=== PATIENT | male | born 1970 | race Caucasian/White ===

== ENCOUNTER → 2016-04-17 08:13 | Day surgery (SDC) | payer BC ==
[~2016-04-17 08:13] MED LIST: Buffered Lidocaine 1% SYR 3ML* 3 ML/SYR SYRINGE INTRADERM ONE; Buffered Lidocaine 1% SYR 3ML* 3 ML/SYR SYRINGE ONE; Bupivacaine 0.25% EPI 200,000* 30 ML SDV ONE; Dexamethasone IV* 4 MG/ML 1 ML (4 MG) ONE; HYDROmorphone INJ* 1 MG/ML CARPUJECT SYRINGE IV PRN; Ketorolac INJ* 30 MG/ML 1 ML VIAL ONE; Lidocaine 2% PF * 5 ML VIAL ONE; Midazolam* 1 MG/ML 2 ML VIAL (2 MG) ONE; Ondansetron INJ* 2 MG/ML VIAL ONE; Propofol* 10 MG/ML 20 ML BTL IV PUSH ONE; ceFAZolin 2 GM PREMIX (*) 2 GM/50 ML BAG IVPB ONE; fentaNYL* 50 MCG/ML 2 ML VIAL (100 MCG VIAL) ONE; methylPREDNISolone ACETATE 80* 80 MG/ML 1 ML VIAL ONE
[2016-04-17 13:25] VITALS: BP 138/79
--- NOTE | 2016-04-21 18:01 | OP ---
CC: PCP OPERATIVE REPORT: DATE OF OPERATION: 04/17/16 DATE OF : 72 SURGEON: Jenifer Betancourt MD [employer]: GARO Howard A PA was needed for the entirety of the case to help with positioning, retraction, and was utilized throughout all portions of the case. ANESTHESIOLOGIST: Dr. Murrieta. ANESTHESIA: General. PRE-OP DIAGNOSES: Right knee medial meniscus tear, lateral meniscus tear, and mild osteoarthritis. POST-OP DIAGNOSES: Right knee medial meniscus tear, lateral meniscus tear, and mild osteoarthritis. OPERATIVE PROCEDURE: Right knee arthroscopy with chondroplasty of the medial femoral condyle, parti al lateral meniscectomy of the lateral root, partial medial meniscectomy, and lysis of adhesions. INDICATIONS: Luis Manuel Lacy is a 45-year-old male who has had progressive knee pain. He underwent arthroscopy with medial meniscus, partial meniscectomy, and chondroplasty. He was doing okay, but i n the last few months, he noticed an increase in pain. He states that he did not fully follow my di rections after his first surgery and was doing too much. He has also gained at least 30 to 50 pound s since his initial surgery. He reports catching, but no specific locking. Risks and benefits of s urgical versus nonoperative treatment were discussed at length and he elected to proceed with chris suazo. DESCRIPTION OF PROCEDURE: The patient was greeted in the preoperative area by the attending surgeon . Correct extremity was marked and consent was confirmed. The patient was brought to the operating suite, where he was placed in the supine position on the operating table. He then underwent genera l anesthesia with LMA intubation, after which a lateral post was placed. A unsterile tourniquet was placed high in the proximal thigh. After a miniature surgical pause, he was injected with 0.25% Ma rcaine with epi. The right leg was then prepped and draped in the usual sterile fashion beginning w ith chlorhexidine, soap, and alcohol and a final prep with ChloraPrep. After appropriate surgical pause indicating side, site, procedure, administration of antibiotics; th e lateral portal was made sharply with 11 blade and a scope was introduced into the joint. There wa s abundant scar anteriorly that limited mobility of the scope. This was medially based as well as a nteriorly and laterally based. This obscured the view, therefore an anteromedial portal was then ma de. The electrocautery device as well as the shaver was used to debride the abundant scar. The knee was then placed in extension, so that the patellofemoral joint could be visualized and the scar was pinching in between the femoral joint. All of this was carefully removed including base of an ante rior synovectomy had been done to allow for visualization. After this was complete, the medial and lateral gutters were identified and found to be without loose debris. The patellofemoral joint had grade 0 to 1 changes. The ACL was intact, but bruised. The lateral compartment was examined and fo und to have partial tearing at the root of the meniscus, which was debrided back using the shaver. There was mild fraying of the lateral meniscus more along the mid portion, which was also debrided b ack. Attention was then directed to the medial compartment. There were grade 2 changes to the media l femoral condyle and medial tibial plateau. Small areas of grade 3 changes with unstable flaps. T hese were debrided back. The meniscus appeared to have mild fraying and the unstable flaps were car efully debrided back. The synovectomy and surgery was complete, all fluid and debris was removed fr om the joint. The portal was closed with 3-0 nylon. The joint was intra-articularly injected with 0.25% Marcaine. Sterile dressings were applied. Cryo/Cuff was applied. He was then awoken from an esthesia and transferred to the PACU in stable condition. POSTOPERATIVE PLAN: He will be weightbearing as tolerated. He will be discharged on pain medicatio n. He will start therapy likely in a week to 10 days. I will see the patient back in 10 to 14 days . DVT prophylaxis was considered, but deferred due to no previous personal personal or family histo ry. [id number]/[facility] #: [id number]
== END | disposition home or self-care (01) ==
LOC: OREAST 08:13
PROVIDERS: ATTEND Orthopaedic Surgery
DX: S83.241A Other tear of medial meniscus, current injury, right knee, initial encounter (principal); S83.281A Other tear of lateral meniscus, current injury, right knee, initial encounter; E66.9 Obesity, unspecified; X50.3XXA Overexertion from repetitive movements, initial encounter; Y92.9 Unspecified place or not applicable
CPT/HCPCS: 88304; J0690; J1040; J1100; J1885; J2250; J2405; J2704; J3010

== ENCOUNTER 2016-05-02 16:09 | Inpatient (IN) | payer BC ==
[~2016-05-02 16:09] MED LIST changes: -Buffered Lidocaine 1% SYR 3ML* 3 ML/SYR SYRINGE INTRADERM ONE; -Buffered Lidocaine 1% SYR 3ML* 3 ML/SYR SYRINGE ONE; -Bupivacaine 0.25% EPI 200,000* 30 ML SDV ONE; -Dexamethasone IV* 4 MG/ML 1 ML (4 MG) ONE; +EPINEPHrine AMP 1 MG/ML ONE; -HYDROmorphone INJ* 1 MG/ML CARPUJECT SYRINGE IV PRN; -Ketorolac INJ* 30 MG/ML 1 ML VIAL ONE; -Lidocaine 2% PF * 5 ML VIAL ONE; -Midazolam* 1 MG/ML 2 ML VIAL (2 MG) ONE; -Ondansetron INJ* 2 MG/ML VIAL ONE; -Propofol* 10 MG/ML 20 ML BTL IV PUSH ONE; -ceFAZolin 2 GM PREMIX (*) 2 GM/50 ML BAG IVPB ONE; -fentaNYL* 50 MCG/ML 2 ML VIAL (100 MCG VIAL) ONE; -methylPREDNISolone ACETATE 80* 80 MG/ML 1 ML VIAL ONE
[2016-05-02] MEDS ORDERED: Bupivacaine 0.5% W/EPI SDV* 30 ML VIAL ONE (16:17)
[2016-05-02] MEDS ORDERED: Propofol* 10 MG/ML 20 ML BTL IV PUSH ONE (16:54)
[2016-05-02] MEDS ORDERED: fentaNYL* 50 MCG/ML 2 ML VIAL (100 MCG VIAL) ONE ×2 (16:54→17:39)
[2016-05-02] MEDS ORDERED: Midazolam* 1 MG/ML 5 ML VIAL (5 MG) ONE (16:54)
[2016-05-02] MEDS ORDERED: Vancomycin(*) 1,000 MG in NS 0.9% 250 ML* 250 ML IVPB ONE ×2 (17:00→21:00)
[2016-05-02] MEDS ORDERED: Ondansetron INJ* 2 MG/ML VIAL ONE (18:29)
[2016-05-02] MEDS ORDERED: Ketorolac INJ* 30 MG/ML 1 ML VIAL ONE (18:29)
[2016-05-02] MEDS ORDERED: diPHENhydraMINE IV* 50 MG/ML 1 ml VIAL (BENADRYL) IV PRN ×2 (18:40→18:43)
[2016-05-02] MEDS ORDERED: oxyCODONE/Acetamin 5/325 MG* TAB PO PRN ×2 (18:40→18:43)
[2016-05-02] MEDS ORDERED: Acetaminophen TAB* 325 MG PO PRN (18:40)
[2016-05-02] MEDS ORDERED: Ondansetron TAB* 4 MG PO PRN (18:40)
[2016-05-02] MEDS ORDERED: Ondansetron INJ* 2 MG/ML VIAL IV PRN ×2 (18:40→18:43)
[2016-05-02] MEDS ORDERED: HYDROcodone/ACETAMIN 5-325 MG* 1 TAB PO PRN (18:43)
[2016-05-02] MEDS ORDERED: fentaNYL* 50 MCG/ML 2 ML VIAL (100 MCG VIAL) IV PRN (18:43)
[2016-05-02] MEDS ORDERED: DiMENhydriNATE IV* 50 MG/ML VIAL IV PUSH PRN (18:43)
[2016-05-02] MEDS ORDERED: HYDROmorphone INJ* 1 MG/ML CARPUJECT SYRINGE ONE (19:35)
[2016-05-02] MEDS: HYDROmorphone INJ* 1 MG/ML CARPUJECT SYRINGE IV PRN ×3 (19:38→19:49)
[2016-05-02] MEDS: Morphine INJ* 2 MG/ML 1 ML CARPUJECT IV PRN (20:27)
[2016-05-02] MEDS ORDERED: Vancomycin per Pharmacy* NOTE FOLLOW UP PRN (20:34)
[2016-05-02] MEDS: Docusate CAP* 100 MG PO SCH (21:59)
[2016-05-02] MEDS: oxyCODONE TAB* 5 MG TAB PO PRN (21:59)
[2016-05-03] MEDS: Morphine INJ* 2 MG/ML 1 ML CARPUJECT IV PRN ×2 (00:21→09:44)
[2016-05-03] MEDS: oxyCODONE TAB* 5 MG TAB PO PRN ×2 (04:01→08:02)
[2016-05-03] MEDS ORDERED: Vancomycin(*) 1,250 MG in NS 0.9% 250 ML* 250 ML IVPB SCH (05:00)
[2016-05-03 07:05] LABS: Hematocrit 39 % (42-52); Hemoglobin 13.2 g/dl (14.0-18.0)
[2016-05-03 07:22] LABS: EGFR African American 104.4 (>60); EGFR Non-African American 81.2 (>60)
[2016-05-03] MEDS: Docusate CAP* 100 MG PO SCH ×2 (08:57→19:55)
[2016-05-03] MEDS: Aspirin TAB* 325 MG PO SCH (08:57)
--- NOTE | 2016-05-03 11:28 | PN ---
Progress Note - Progress Note SOAP: Subjective: []Patient seen at bedside. Still with moderate right knee pain. Denies SOB, CP or dizziness. Objective: [] Vital Signs Temp 97.7 F 05/03/16 07:46 Pulse 72 05/03/16 07:46 Resp 17 05/03/16 09:44 BP 118/61 05/03/16 07:46 Pulse Ox 97 05/03/16 07:46 Intake & Output 05/02/16 05/03/16 05/03/16 18:59 06:59 18:59 Intake Total 1150 3968 Output Total 550 Balance 1150 3418 Weight 330 lb Intake: IV Fluids 1150 868 LR 900 868 NS 250ML, Vancomycin 250 1000MG IVPB 250 ABX - VANCOMYCIN 250 Oral 2850 Output: ALICIA #1 100 Urine 450 Laboratory Results - last 24 hr 05/03/16 05/03/16 06:55 06:55 Hgb 13.2 L Hct 39 L BUN 17 Creatinine 1.00 Est GFR ( Amer) 104.4 Est GFR (Non-Af Amer) 81.2 Microbiology 05/02/16 17:40 Skin and Soft Tissue MRSA/MSSA (PCR - Final Wound - Knee Right Mrsa Negative S.aureus Positive Gram Stain - Final right knee CLAIRE/ dressings C/D/I calf NT Saturnino's negative ALICIA drain intact with moderate serosanguenous drainage Assessment: []s/p arthroscopic I&D for infected knee joint POD #1 Plan: []Continue with ALICIA drain, sewn in Patient to bring in his own cryo machine WBAT currently on IV Vanco, MRSA negative, + S. aureus Dr. Nuñez evaluating patient and will recommend IV/ oral abx course, will likely need PIC line probable discharge home tomorrow.
[2016-05-03] MEDS: oxyCODONE/Acetamin 5/325 MG* TAB PO PRN ×4 (12:12→22:21)
--- NOTE | 2016-05-03 15:54 | OP ---
OPERATIVE NOTE: DATE OF OPERATION: 05/02/16 DATE OF : 72 SURGEON: Chip Atkinson MD. PUMP SERVICER: GARO Gutierres. ANESTHESIOLOGIST: Conner Monterroso MD ANESTHESIA: General anesthesia, local anesthesia. PRE-OP DIAGNOSES: 1. Infected right knee. 2. Status post 04/17/16 right knee arthroscopy. POST-OP DIAGNOSES: 1. Right knee infection. 2. Status post 04/17/16 right knee arthroscopy. OPERATIVE PROCEDURE: Irrigation and debridement, arthroscopic, right knee, with placement of drain. ANTIBIOSIS: Vancomycin 1 g IV given after cultures were taken. IV FLUIDS: See Anesthesia note. TOURNIQUET TIME: 52 minutes at 300 mmHg. ESTIMATED BLOOD LOSS: Minimal. COMPLICATIONS: None. SPECIMENS: Aerobic and anaerobic cultures. IMPLANTS: None. DRAINS: One ALICIA drain, 7-Danish, 7 mm. INDICATIONS FOR PROCEDURE: The patient is a 45-year-old man, over the road driver for [employer], 2 weeks and 1 day status post a right knee arthroscopic procedure done by Dr. Betancourt on 04/17/16, who presented to clinic today with increased drainage and pain about his right knee. As reviewed, on 04/17/16, the patient had a right knee arthroscopic partial lateral meniscectomy including posterior root of the lateral meniscus, partial medial meniscectomy, lysis of adhesions, and a chondroplasty of the medial femoral condyle. The patient had previously undergone, in January 2015, also by Dr. Betancourt, a partial medial meniscectomy and chondroplasty. The patient was noted, at postoperative clinic visit on 04/27/16, to have some minimal drainage when stitch was removed from the arthroscopy portal skin incision site. This drainage was monitored. The patient was told to present to clinic should the drainage increase or the patient develop knee pain. The patient did that and presented to my clinic today. The patient described prolific drainage over the last several days, with a dressing becoming fully saturated within 5 minutes of placement, as well as his pants becoming saturated. The patient had not required any assist device for 14 days postoperative until today when he developed significant knee pain, which required him to use a crutch. In my office, the patient had some purulence draining from his medial arthroscopy portal. I aspirated his knee and obtained 40 cc of brown-yellow purulent fluid. I sent it for laboratory analysis, but based on the appearance of the knee, his history, and his physical exam which involved some limited range of motion with significant pain, he had a presumptive right knee infection. The patient agreed with surgical management. We held preoperative antibiotics anticipating getting cultures intraoperatively at the start of the case. DESCRIPTION OF PROCEDURE: Preoperative written consent. Operative extremity was marked in preoperative holding. The patient was taken back to the operating room and placed supine on operating room table, sedated and LMA. The right lower extremity was prepped and draped. Surgical time-out performed. An Esmarch was applied and tourniquet was elevated to 300 mmHg. Anterolateral knee arthroscopy portal was established using standard technique through the prior knee arthroscopy portal. Purulent fluid emitted from the cannula. We obtained cultures from this fluid. Once cultures were taken, Anesthesia provided the vancomycin 1 g. I then arthroscoped the knee, performing a diagnostic arthroscopy. There was no clear notice of infected material in the suprapatellar pouch. There was healthy- appearing fat there. Moving to the medial compartment, there was some cobblestoning of both articular cartilage surfaces, more the medial femoral condyle than the medial tibial plateau. I was worried about proximally the 70% medial most aspect of the medial femoral condyle appeared thinned out compared to more centrally and slightly cobblestoned. There was no clear fibrous tissue attached to it, but it appeared thinned. There was no meniscal tearing. I proceeded to the intracondylar notch which showed intact ACL and PCL and the lateral compartment which showed some trace thinning of the cartilage, but much less significant than in the medial compartment. No lateral meniscal tear. Some synovitis anterior but not significant. I then created an anteromedial knee arthroscopy portal under direct visualization. Introduced an arthroscopic shaver and used the shaver in all 3 compartments to debride any floating bacterial infection. Also debrided along the side of the articular cartilage, being careful not to touch any articular cartilage with the shaver blade. I lightly debrided the inner surface of the medial and lateral meniscus, not debriding any significant amount of that but trying to remove any bacteria that might be clinging to the meniscus. After 3L had entered the knee, I then addressed the pre-existing anteromedial knee arthroscopy portal. I ellipsed out the skin and soft tissue around the edge of the medial and lateral aspect of the incision. I then removed any visible poor looking fat. I used a curette to rasp the remaining subcutaneous tissue. I then restuck in the arthroscope and actually debrided that area from the inside out as well. Given that the patient had developed a fistula like tract through the old anteromedial knee arthroscopy portal. I continued with the arthroscopic shaver in all 3 compartments on debriding some fat in the suprapatellar pouch. I felt with an arthroscopic probe the medial and lateral femoral condyles and did not detect any discrete fibrous tissue in need of being removed. Early in this debridement process, I introduced a superolateral portal and a cannula through it for fluid to exit the knee through. I passed a total of 14 Liters of fluid through the knee. At the end of my debridement, I then inserted a ALICIA drain through that superolateral hole about the knee. Drain was confirmed to be within the knee joint. Fluid and instruments were removed from the knee. One stitch was placed in the superolateral arthroscopy portal skin incision site. I then placed a stitch in the skin with 4-0 Prolene and tied down the ALICIA drain with it. Figure-of- eight in 12 stitches were used to close the 3 knee arthroscopy portal incisions with Prolene 4-0 suture. I a little bit more loosely closed the pre-existing anteromedial portal to allow some tiny amount of drainage. There is a pinpoint opening at the inferior edge of the incision. 4x4's, ABDs, Ed bandage. Tourniquet was dropped. A safety pin was used to affix the ALICIA drain to the Ed bandages. The patient was awakened, extubated, and brought to the PACU. DISPOSITION: The patient will be admitted to the floor for IV antibiotics as we determine the final antibiotic plan, given pending cultures. Infectious Disease, Dr. Dumont, has already been consulted. The patient will have pain control, aspirin, DVT prophylaxis, and antibiotics. [id number]/[facility] #: [id number] [facility] SYSTEM[facility]
[2016-05-03] MEDS: Oxacillin(*) 2 GM in NS 0.9% 100 ML* 100 ML IVPB SCH ×4 (15:59→23:58)
--- NOTE | 2016-05-03 20:43 | CONS ---
CONSULTATION REPORT: DATE OF CONSULT: 05/03/16 REQUESTING PHYSICIAN: Dr. Atkinson. CONSULTING SERVICE: Infectious Disease. REASON FOR CONSULT: Septic right knee. IMPRESSION: 1. Septic right knee due to methicillin-sensitive Staphylococcus aureus, has had an arthroscopic incision and debridement on May 02. Gram stain from the procedure showed gram-positive cocci in clusters, the PCR is positive for Staphylococcus aureus, negative for methicillin-resistant Staphylococcus aureus. 2. Status post right knee arthroscopy, chondroplasty of medial femoral condyle , partial lateral meniscectomy, partial medial meniscectomy on 04/17/16. 3. Obesity. RECOMMENDATION: 1. We will add a CBC and a CMP as well as a hemoglobin A1c. 2. Stop vancomycin, start oxacillin 2 g IV every [address] a PICC line , weekly CBC, CMP, CRP. We discussed side effects of antibiotics including fever, rash, or diarrhea, including infectious diarrhea like Clostridium difficile infection, he will notify me if any of the above. HISTORY OF PRESENT ILLNESS: This is a 45-year-old man admitted with right knee pain and swelling. He had recent arthroscopic knee procedure that was healing well and he started to have serous and purulent drainage from one of the port sites. His knee got swollen, more painful, it was hard to bear weight. He developed some decreased appetite and chills, but no fevers or sweats. He was seen as an outpatient by Dr. Atkinson who aspirated his knee joint. There were 190,000 white cells, mostly polys, no crystal, the Gram stain showed gram- positive cocci in clusters. The PCR was positive for Staph aureus, negative for MRSA. He had an arthroscopic washout last night. He was started on vancomycin overnight, he has tolerated that well, but pain and swelling has decreased, is little less painful to bear weight now. He has had no fevers overnight. He is eating okay. He has had no diarrhea or rash. PAST MEDICAL HISTORY: 1. Obesity. 2. Right arthroscopic knee surgery. 3. History of migraine headaches. MEDICATIONS: 1. Vancomycin 1 g every 8 hours. 2. Morphine p.r.n. 3. Docusate. 4. Oxycodone p.r.n. ALLERGIES: No known drug allergies. FAMILY HISTORY: No recurrent infections. SOCIAL HISTORY: Lives in [place]. No travel or sick contacts. No injection drugs. REVIEW OF SYSTEMS: All negative except as noted above. PHYSICAL EXAM: Vital Signs: Temperature is 36.5, heart rate 70, respiratory rate 18, blood pressure 118/61, O2 sat 97% on room air. In general, he is awake , in no distress. Neurologically, he is oriented x3, follows all commands, moves all extremities. HEENT: There is no conjunctival hemorrhage. Oropharynx without lesions. Neck is supple without nuchal rigidity. Lymph Nodes : There is no cervical, supraclavicular, inguinal, axillary, or epitrochlear lymphadenopathy. Heart has regular rate and rhythm without murmurs, rubs, or gallops. Lungs are clear to auscultation bilaterally. Abdomen is obese, nontender, and nondistended. There is no rebound. Skin: There is no rash or splinter hemorrhages. Musculo-skeletal: There is no spine tenderness to palpation. Right knee, there is diffuse edema and induration. Arthroscopy ports without any drainage. There is a lateral ALICIA drain with serosanguineous fluid. There is no crepitus or tenderness on palpation, but decreased flexion and extension. LABORATORY DATA: Hemoglobin was 13. Creatinine was 1. Please see impressions and recommendations as outlined above, which I have discussed with Dr. Atkinson. Thanks for asking me to see Mr. Lacy in consultation. [id number]/[facility] #: [id number] KADEN
[2016-05-04] MEDS: Oxacillin(*) 2 GM in NS 0.9% 100 ML* 100 ML IVPB SCH ×3 (04:18→12:24)
[2016-05-04] MEDS: oxyCODONE/Acetamin 5/325 MG* TAB PO PRN ×3 (04:21→11:27)
[2016-05-04] MEDS ORDERED: Vancomycin Trough Check NOTE FOLLOW UP ONE (04:30)
[2016-05-04 07:28] LABS: Hematocrit 41 % (42-52); Hemoglobin 13.6 g/dl (14.0-18.0); Mean Corpuscular HGB Conc 33 g/dl (31-36); Mean Corpuscular Hemoglobin 29 pg (27-31); Mean Corpuscular Volume 89 fL (80-94); Mean Platelet Volume 8 um3 (7.4-10.4); Red Blood Count 4.62 10^6/ul (4.0-5.4); Red Cell Distribution Width 14 % (10.5-15); White Blood Count 6.2 10^3/ul (3.5-10.8)
[2016-05-04 07:35] LABS: Albumin 3.3 g/dL (3.2-5.2); BUN/Creatinine Ratio 13.6 (8-20); Calcium 8.7 mg/dL (8.6-10.3); EGFR African American 100.9 (>60); EGFR Non-African American 78.5 (>60); Globulin 3.1 g/dL (2-4); Potassium 4.3 mmol/L (3.5-5.0); Total Bilirubin 0.4 mg/dL (0.2-1.0); Total Protein 6.4 g/dL (6.4-8.9)
[2016-05-04 07:50] VITALS: BP 124/64
[2016-05-04] MEDS: Aspirin TAB* 325 MG PO SCH (08:31)
[2016-05-04] MEDS: Docusate CAP* 100 MG PO SCH (08:31)
--- NOTE | 2016-05-04 08:46 | PN ---
Progress Note - Progress Note SOAP: Subjective: []Patient seen at bedside. Didn't sleep well last night despite knee pain being under good control. Hopes to be discharged home today. Denies fever or chills, CP, SOB or dizziness. Objective: [] Vital Signs Temp 99.0 F 05/04/16 07:12 Pulse 85 05/04/16 07:12 Resp 18 05/04/16 07:56 BP 124/64 05/04/16 07:12 Pulse Ox 91 05/04/16 07:12 Intake & Output 05/03/16 05/04/16 05/04/16 18:59 06:59 18:59 Intake Total 400 763 Output Total 1270 470 40 Balance -870 293 -40 Intake: IVPB 123 LR 18 oxacillin 105 Oral 400 640 Output: ALICIA #1 70 70 40 Urine 1200 400 Other: Estimated Void Large Large # Voids 1 1 Laboratory Results - last 24 hr 05/04/16 05/04/16 06:58 06:58 WBC 6.2 RBC 4.62 Hgb 13.6 L Hct 41 L MCV 89 MCH 29 MCHC 33 RDW 14 Plt Count 154 MPV 8 Neut % (Auto) 69.2 Lymph % (Auto) 17.1 L Early % (Auto) 11.0 H Eos % (Auto) 2.2 Baso % (Auto) 0.5 Absolute Neuts (auto) 4.3 Absolute Lymphs (auto) 1.1 Absolute Monos (auto) 0.7 Absolute Eos (auto) 0.1 Absolute Basos (auto) 0 Absolute Nucleated RBC 0 Nucleated RBC % 0 Sodium 133 Potassium 4.3 Chloride 100 L Carbon Dioxide 29 Anion Gap 4 BUN 14 Creatinine 1.03 Est GFR ( Amer) 100.9 Est GFR (Non-Af Amer) 78.5 BUN/Creatinine Ratio 13.6 Glucose 121 H Calcium 8.7 Total Bilirubin 0.40 AST 22 ALT 48 Alkaline Phosphatase 64 Total Protein 6.4 Albumin 3.3 Globulin 3.1 Albumin/Globulin Ratio 1.1 Microbiology 05/02/16 17:40 Skin and Soft Tissue MRSA/MSSA (PCR - Final Wound - Knee Right Mrsa Negative S.aureus Positive Gram Stain - Final Right knee dressings were taken down scant bloody drainage from lateral portal, no purulent drainage No erythema or significant warmth calf non tender and soft +DF/PF right ankle Assessment: []s/p arthroscopic I&D for S. aureus right knee infection, POD#2 Plan: []ALICIA drain to remain until drainage minimal in 24 hrs. Pt is ok to pull drain at home PICC line this morning Home Oxacillin infusion Percocet Rx for home Follow up next week with Dr. Atkinson
[2016-05-04] MEDS ORDERED: Influenza VAC *QUAD* 2016-17* 0.5 ML SYRINGE IM ONE (09:00)
--- NOTE | 2016-05-04 12:36 | PN ---
Progress Note - Progress Note SOAP: Subjective: DOS: 05/04/16 cc: Septic right knee HPI: 45 year old man with right knee infection, aspirate growing MSSA. Had arthroscopic I&D, also growing MSSA. Less pain today, able to bear more weight and bend it more. Drain changed this morning. Some serosanguinous drainage. No fever, rash, or diarrhea. Objective: [] Vital Signs Temp 37.2 C 05/04/16 07:12 Pulse 85 05/04/16 07:12 Resp 18 05/04/16 11:27 BP 124/64 05/04/16 07:12 Pulse Ox 91 05/04/16 07:12 Intake & Output 05/03/16 05/04/16 05/04/16 18:59 06:59 18:59 Intake Total 400 763 Output Total 1270 470 40 Balance -870 293 -40 Intake: IVPB 123 LR 18 oxacillin 105 Oral 400 640 Output: ALICIA #1 70 70 40 Urine 1200 400 Other: Estimated Void Large Large # Voids 1 1 Gen:No distress Neuro:AAOX3 cn 2-12 intact Neck:supple Heart:RRR no murmur Lungs:CTA BL Abd:+BS NTND soft Skin: no rash MSK: R knee diffuse edema and warmth minimal erythema, ALICIA with serosanguinous fluid Laboratory Results - last 24 hr 05/04/16 05/04/16 05/04/16 06:58 06:58 06:58 WBC 6.2 RBC 4.62 Hgb 13.6 L Hct 41 L MCV 89 MCH 29 MCHC 33 RDW 14 Plt Count 154 MPV 8 Neut % (Auto) 69.2 Lymph % (Auto) 17.1 L Cherry % (Auto) 11.0 H Eos % (Auto) 2.2 Baso % (Auto) 0.5 Absolute Neuts (auto) 4.3 Absolute Lymphs (auto) 1.1 Absolute Monos (auto) 0.7 Absolute Eos (auto) 0.1 Absolute Basos (auto) 0 Absolute Nucleated RBC 0 Nucleated RBC % 0 Sodium 133 Potassium 4.3 Chloride 100 L Carbon Dioxide 29 Anion Gap 4 BUN 14 Creatinine 1.03 Est GFR ( Amer) 100.9 Est GFR (Non-Af Amer) 78.5 BUN/Creatinine Ratio 13.6 Glucose 121 H Hemoglobin A1c 6.5 H Calcium 8.7 Total Bilirubin 0.40 AST 22 ALT 48 Alkaline Phosphatase 64 Total Protein 6.4 Albumin 3.3 Globulin 3.1 Albumin/Globulin Ratio 1.1 Assessment: 1. MSSA septic right knee s/p I&D 2. elevated Hgb a1c, T2 diabetes mellitus 3. obesity Plan: 1. COntinue oxacillin 2 gm IV Q4hrs day 05/02, weekly cbc, cmp, crp ordered and follow up with me next week 2. discussed implication of diabetes diagnosis and need to find PCP, initial mgmt is dietary modification
--- NOTE | 2016-05-04 15:16 | DS ---
DISCHARGE SUMMARY: DATE OF ADMISSION: 05/02/16 DATE OF DISCHARGE: 05/04/16 ATTENDING PHYSICIAN: Chip Atkinson MD ADMISSION DIAGNOSIS: Infected right knee. DISCHARGE DIAGNOSIS: Infected right knee joint. SURGERY PERFORMED: Arthroscopic irrigation and debridement with placement of drain, right knee. HOSPITAL COURSE: The patient is a 45-year-old male who underwent right knee arthroscopy under the care of Dr. Betancourt on 04/17/16. He had a partial lateral meniscectomy, partial medial meniscectomy, lysis of adhesions, and chondroplasty of the medial femoral condyle. He had minimal drainage on his first postoperative visit, but had increasing pain and drainage that was saturating his clothing and presented to the office for evaluation with Dr. Atkinson on the 02 of May. Due to the amount of drainage and the purulence, it was felt that he would best benefit from arthroscopic irrigation and debridement and the patient elected to proceed with surgical intervention. He was taken to the operating room under the care of Dr. Chpi Atkinson on the evening of 05/02/16. Postoperatively, he was initially placed on IV vancomycin and ALICIA drain continued to drain moderate amounts of serosanguineous fluid. His pain did improve. Drainage had ceased. He was evaluated by Infectious Disease, Dr. Yadiel Dumont, on the recommended a PICC line and IV oxacillin therapy. The patient is receiving PICC line this morning, 05/02/16. He will have a home infusion unit and receive 2 g of oxacillin q.4 hours. His drain will be left in place and he will take the drain out as instructed by Dr. Atkinson over the weekend. CONDITION ON DISCHARGE: The patient is afebrile. Vital signs are stable. His right knee is mildly swollen without erythema. There is mild warmth. A small amount of bloody drainage is noted from the lateral portal from taking off the dressing. There is no purulence. His ALICIA drain continues to drain moderate serosanguineous fluid every shift. PLAN: Discharge this afternoon after PICC line placement and his home IV pump has been set up. Continue with the IV oxacillin and weekly laboratory studies as per Dr. Dumont's recommendations. He is prescribed Percocet 5/325 mg 1 to 2 tabs p.o. q.3 hours p.r.n. pain. Prescription sent to his pharmacy. Dr. Atkinson would like to hear from the patient over the weekend regarding the amount of drainage. Instructions were given to the patient for removal of the drain as it is sutured in. The patient is comfortable with this. Dr. Atkinson would like to see the patient in followup in the office next week for evaluation. GARO MEJIA [id number]/[facility] #: [id number] [facility]
== END 2016-05-04 13:30 | disposition home or self-care (01) | DRG 313 ==
LOC: OR 16:09 → INTOOBSV 20:00 → SSU 20:00 → OBSVTOIN 05-03 13:00 → UNDODISIN 05-04 13:10
PROVIDERS: ADMIT Orthopaedic Surgery; ATTEND Orthopaedic Surgery
PROC: 0SBC4ZZ Excision of Right Knee Joint, Percutaneous Endoscopic Approach (ICD-10-PCS; principal; 2016-05-02 17:00)
PROC: 02HV33Z Insertion of Infusion Device into Superior Vena Cava, Percutaneous Approach (ICD-10-PCS; 2016-05-04)
DX: M00.061 Staphylococcal arthritis, right knee (principal); E11.65 Type 2 diabetes mellitus with hyperglycemia; B95.61 Methicillin susceptible Staphylococcus aureus infection as the cause of diseases classified elsewhere; E66.9 Obesity, unspecified; Z68.38 Body mass index [BMI] 38.0-38.9, adult
CPT/HCPCS: 36415; 80053; 82565; 83036; 84520; 85014; 85018; 85025; 87070; 87073; 87077; 87102; 87116; 87186; 87205; 87206; 87640; 87641; 89051; 89060; 90686; A9270-GY; C1751; G0379; J0171; J1170; J1885; J2250; J2270; J2405; J2700; J2704; J3010; J3370

== ENCOUNTER 2016-05-07 22:04 | Emergency (ER) | payer BC ==
--- NOTE | 2016-05-07 22:44 | ED ---
Tarun Sotomayor Anna, scribed for Joaquín Curtis MD on 05/07/16 at 2239 . HPI Febrile Illness - HPI Summary HPI Summary: Patient is a 45 y/o male coming to [facility] presenting with an intermittent fever that began today. He reports his temperature has been between 99.8-100.9 F. He has an existing infection on his right knee that began five days ago. He had surgery on the same knee two weeks ago. He is currently receiving Abx through a PICC line. The patient called Dr. Atkinson this evening, who recommended the patient come to the ED. The patient reports he ate dinner normally tonight. - History of Current Complaint Chief Complaint: EDExtremityLower Time Seen by Provider: 05/07/16 22:06 Hx Obtained From: Patient Pain Intensity: 7 Pain Scale Used: 0-10 Numeric - Additional Pertinent History Primary Care Physician: [id number] - Allergy/Home Medications Allergies/Adverse Reactions: Allergies Allergy/AdvReac Type Severity Reaction Status Date / Time No Known Allergies Allergy Verified 05/02/16 16:59 PMH/Surg Hx/FS Hx/Imm Hx Endocrine/Hematology History: Denies: Hx Bone Marrow Disease, Hx Diabetes, Hx Sickle Cell Disease, Hx Thyroid Disease, Hx Anemia Cardiovascular History: Reports: Hx Hypertension Denies: Hx Cardiomegaly, Hx Congestive Heart Failure, Hx Coronary Artery Disease, Hx Pacemaker/ICD, Hx Peripheral Vascular Disease, Hx Rheumatic Fever, Hx Valvular Heart Disease, Other Cardiovascular Problems/Disorders Respiratory History: Denies: Hx Asthma, Hx Chronic Obstructive Pulmonary Disease (COPD), Hx Pulmonary Edema, Hx Pulmonary Embolism, Hx Sleep Apnea, Other Respiratory Problems/Disorders GI History: Denies: Hx Cirrhosis, Hx Crohn's Disease, Hx Gastroesophageal Reflux Disease , Hx Hiatal Hernia, Hx Irritable Bowel, Hx Jaundice, Hx Ulcer, Other GI Disorders History: Denies: Hx Dialysis, Hx Kidney Infection, Hx Kidney Stones, Hx Renal Disease , Other Problems/Disorders Musculoskeletal History: 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 Denies: Hx Rheumatoid Arthritis, Hx Back Problems, Hx Bursitis, Hx Osteoporosis, Hx Tendonitis, Other Musculoskeletal History Sensory History: Denies: Hx Cataracts, Hx Contacts or Glasses, Hx Glaucoma, Hx Hearing Aid Opthamlomology History: Denies: Hx Cataracts, Hx Contacts or Glasses, Hx Glaucoma Neurological History: Denies: Hx Dementia, Hx Headaches, Hx Migraine - RARE, Hx Nerve Disease, Hx Seizures, Other Neuro Impairments/Disorders Psychiatric History: Denies: Hx Anxiety, Hx Depression, Hx Panic Disorder - Cancer History Hx Chemotherapy: No - Surgical History Surgery Procedure, Year, and Place: NECK LYMPH NODES REMOVED (BENIGN)30 YRS AGO , RT KNEE SCOPE 01/2015, RT KNEE SURGERY 04/2016 Hx Anesthesia Reactions: No Infectious Disease History: No Infectious Disease History: Denies: Hx Hepatitis, History Other Infectious Disease, Traveled Outside the [place] in Last 30 Days - Family History Known Family History: Positive: Hypertension - Social History Lives: With Family Alcohol Use: Occasionally Alcohol Amount: 2-3 PER DAY Substance Use Type: Reports: None Hx Tobacco Use: No Smoking Status (MU): Never Smoked Tobacco Review of Systems Positive: Fever Positive: Other - Infection on right knee All Other Systems Reviewed And Are Negative: Yes Physical Exam Triage Information Reviewed: Yes Vital Signs On Initial Exam: Initial Vitals Temp Pulse Resp BP Pulse Ox 97.6 F 88 16 126/70 96 05/07/16 22:11 05/07/16 22:11 05/07/16 22:11 05/07/16 22:11 05/07/16 22:11 Vital Signs Reviewed: Yes Appearance: Positive: No Pain Distress, Obese Skin: Positive: Warm Head/Face: Positive: Normal Head/Face Inspection Eyes: Positive: RANDELL ENT: Positive: Hearing grossly normal Neck: Positive: Supple Respiratory/Lung Sounds: Positive: Breath Sounds Present Cardiovascular: Positive: RRR Abdomen Description: Positive: Nontender, Soft Bowel Sounds: Positive: Present Musculoskeletal: Positive: Other - swollen, teder, warm rt knee Neurological: Positive: Sensory/Motor Intact, Alert, Oriented to Person Place, Time Psychiatric: Positive: Affect/Mood Appropriate Procedures - Incision and Drainage Site: rt knee Anesthesia: Topical Instrument(s): Needle Diagnostics - Vital Signs Vital Signs Temp Pulse Resp BP Pulse Ox 05/07/16 22:11 97.6 F 88 16 126/70 96 - Laboratory Result Diagrams: 05/07/16 23:20 05/07/16 23:20 Lab Statement: Any lab studies that have been ordered have been reviewed, and results considered in the medical decision making process. Re-Evaluation - Re-Evaluation First Eval Re-Evaluation Time: 01:55 Change: Improved Comment: Discussed results and plan of care with patient. Patient agrees with plan. Course/Dx - Course Assessment/Plan: Patient is a 45 y/o male coming to [facility] presenting with an intermittent fever that began today. He reports his temperature has been between 99.8-100.9 F. He has an existing infection on his right knee that began five days ago. He had surgery on the same knee two weeks ago. He is currently receiving Abx through a PICC line. The patient called Dr. Atkinson this evening, who recommended the patient come to the ED. The patient reports he ate dinner normally tonight. Labs reveal Hgb of 134., Hct of 40, MPV of 7, Creatinine of 1.19, ALT of 63, C-Reactive protein of 139.2, and Albumin/Globulin ratio of 0.9. Discussed patient care with Dr. Morales, orthopedics. Synovial fluid WNL. Patient will follow up with Dr. Atkinson tomorrow. - Diagnoses Provider Diagnoses: Knee swelling - Provider Notifications Discussed Care Of Patient With: Dr. Morales (orthopedics) at 2248. Luis Manuel is a patient of Dr. Atkinson's. Will tap the patient's infection site and return the call depending on findings. Patient ate dinner tonight. Discharge - Discharge Plan Condition: Stable Disposition: HOME Patient Education Materials: Knee Pain (ED), Swollen Joint (ED) Referrals: Chip Atkinson MD [Medical Doctor] - Additional Instructions: Follow up with Dr. Atkinson tomorrow. Return to the emergency department for changing or worsening symptoms. The documentation as recorded by the Tarun saleh Anna accurately reflects the service I personally performed and the decisions made by , Joaquín Curtis MD.
[2016-05-07 23:43] LABS: Hematocrit 40 % (42-52); Hemoglobin 13.4 g/dl (14.0-18.0); Mean Corpuscular HGB Conc 33 g/dl (31-36); Mean Corpuscular Hemoglobin 29 pg (27-31); Mean Corpuscular Volume 87 fL (80-94); Mean Platelet Volume 7 um3 (7.4-10.4); Red Blood Count 4.58 10^6/ul (4.0-5.4); Red Cell Distribution Width 13 % (10.5-15); White Blood Count 5.4 10^3/ul (3.5-10.8)
[2016-05-07 23:54] LABS: Albumin 3.4 g/dL (3.2-5.2); BUN/Creatinine Ratio 11.8 (8-20); C Reactive Protein 139.2 mg/L (< 5.00); EGFR African American 85.4 (>60); EGFR Non-African American 66.4 (>60); Globulin 3.6 g/dL (2-4); Potassium 3.9 mmol/L (3.5-5.0); Total Bilirubin 0.7 mg/dL (0.2-1.0)
[2016-05-08] MEDS ORDERED: Ethyl Chloride SPRAY (NF) BTL ONE (00:11)
[2016-05-08 01:09] LABS: Body Fluid Appearance Bloody; Body Fluid WBC 29038 /mcL
[2016-05-08 01:34] LABS: Body Fluid Total Cells Counted 100
[2016-05-08 02:03] VITALS: BP 125/81
--- NOTE | 2016-05-09 09:24 | ED ---
Progress - Progress Note Progress Note: Pt's joint fluid s/p aspiration reveals s. aureus - Dr. Atkinson aware and pt to f/u day after being seen here. Upon reviewing chart, appears pt was admitted yesterday and under the care of ortho service. LMTC in the event these results were not reviewed. Will also fwd to Dr. Atkinson. mari Turner clerk, aware. Re-Evaluation - Re-Evaluation First Eval Re-Evaluation Time: 01:55 Change: Improved Comment: Discussed results and plan of care with patient. Patient agrees with plan. Course/Dx - Diagnoses Provider Diagnoses: Knee swelling - Provider Notifications Discussed Care Of Patient With: Dr. Morales (orthopedics) at 2248. Luis Manuel is a patient of Dr. Atkinson's. Will tap the patient's infection site and return the call depending on findings. Patient ate dinner tonight.
[2016-05-09 16:45] LABS: Total Protein, BF 5.7 g/dL
[2016-05-09 17:08] LABS: Glucose, BF 23 mg/dL
== END 2016-05-08 02:03 | disposition home or self-care (01) ==
LOC: ED 22:04
DX: R60.0 Localized edema (principal); R50.9 Fever, unspecified
CPT/HCPCS: 20600; 36415; 80053; 82945; 83605; 83615; 84157; 85025; 86140; 87070; 87205; 87640; 87641; 89051; 99283; A9270-GY

== ENCOUNTER 2016-05-08 15:24 | Inpatient (IN) | payer BC ==
[2016-05-08] MEDS ORDERED: Famotidine IV* 10 MG/ML 2 ML (20 mg) IV ONE (15:36)
[2016-05-08] MEDS ORDERED: Famotidine IV* 10 MG/ML 2 ML (20 mg) ONE (15:36)
[2016-05-08] MEDS ORDERED: Buffered Lidocaine 1% SYR 3ML* 3 ML/SYR SYRINGE INTRADERM ONE (15:36)
[2016-05-08] MEDS ORDERED: ceFAZolin 1 GM in Dextrose (*) 1 GM/50 ML BAG IVPB ONE (15:52)
[2016-05-08] MEDS ORDERED: ceFAZolin 2 GM PREMIX (*) 2 GM/50 ML BAG IVPB ONE (15:52)
[2016-05-08] MEDS ORDERED: Bupivacaine 0.25% EPI 200,000* 30 ML SDV ONE (15:58)
[2016-05-08] MEDS ORDERED: Bupivacaine 0.25% SDV* 30 ML ONE (15:58)
[2016-05-08] MEDS ORDERED: Midazolam* 1 MG/ML 5 ML VIAL (5 MG) ONE (16:15)
[2016-05-08] MEDS ORDERED: fentaNYL* 50 MCG/ML 2 ML VIAL (100 MCG VIAL) ONE ×2 (16:15→16:56)
[2016-05-08] MEDS ORDERED: Lidocaine 2% PF * 5 ML VIAL ONE (16:16)
[2016-05-08] MEDS ORDERED: Ketorolac INJ* 30 MG/ML 1 ML VIAL ONE (16:16)
[2016-05-08] MEDS ORDERED: Ondansetron INJ* 2 MG/ML VIAL ONE (16:16)
[2016-05-08] MEDS ORDERED: Propofol* 10 MG/ML 20 ML BTL IV PUSH ONE (16:16)
[2016-05-08] MEDS ORDERED: DiMENhydriNATE IV* 50 MG/ML VIAL IV PUSH PRN (17:05)
[2016-05-08] MEDS: HYDROmorphone INJ* 1 MG/ML CARPUJECT SYRINGE IV PRN ×6 (17:51→19:02)
[2016-05-08] MEDS ORDERED: HYDROmorphone INJ* 1 MG/ML CARPUJECT SYRINGE ONE ×2 (17:51→18:43)
[2016-05-08] MEDS ORDERED: oxyCODONE/Acetamin 5/325 MG* TAB ONE (18:01)
[2016-05-08] MEDS: oxyCODONE/Acetamin 5/325 MG* TAB PO PRN ×3 (18:02→22:14)
[2016-05-08] MEDS ORDERED: Acetaminophen TAB* 325 MG PO PRN (18:16)
[2016-05-08] MEDS ORDERED: Ondansetron INJ* 2 MG/ML VIAL IV PRN (18:16)
[2016-05-08] MEDS ORDERED: diPHENhydraMINE IV* 50 MG/ML 1 ml VIAL (BENADRYL) IV PRN (18:16)
[2016-05-08] MEDS ORDERED: traZODone TAB* 50 MG TAB PO PRN (18:16)
[2016-05-08] MEDS ORDERED: oxyCODONE/Acetamin 5/325 MG* TAB PO PRN (18:16)
[2016-05-08] MEDS ORDERED: Morphine INJ* 2 MG/ML 1 ML CARPUJECT ONE (19:39)
[2016-05-08] MEDS: Morphine INJ* 2 MG/ML 1 ML CARPUJECT IV PRN (19:42)
[2016-05-08] MEDS: Enoxaparin(*) 40 MG/0.4 ML SYR SUBCUT SCH (20:17)
[2016-05-08] MEDS: Oxacillin(*) 2 GM in NS 0.9% 100 ML* 100 ML IVPB SCH (20:19)
[2016-05-08] MEDS: Docusate CAP* 100 MG PO SCH (20:31)
[2016-05-09] MEDS: Oxacillin(*) 2 GM in NS 0.9% 100 ML* 100 ML IVPB SCH ×4 (02:18→20:22)
[2016-05-09] MEDS: oxyCODONE/Acetamin 5/325 MG* TAB PO PRN ×5 (02:21→22:00)
[2016-05-09 06:04] LABS: Hematocrit 36 % (42-52); Hemoglobin 11.9 g/dl (14.0-18.0); Mean Corpuscular HGB Conc 33 g/dl (31-36); Mean Corpuscular Hemoglobin 29 pg (27-31); Mean Corpuscular Volume 88 fL (80-94); Mean Platelet Volume 7 um3 (7.4-10.4); Red Blood Count 4.06 10^6/ul (4.0-5.4); Red Cell Distribution Width 13 % (10.5-15); White Blood Count 4.2 10^3/ul (3.5-10.8)
[2016-05-09 06:30] LABS: BUN/Creatinine Ratio 15.9 (8-20); C Reactive Protein 128.52 mg/L (< 5.00); Calcium 8.5 mg/dL (8.6-10.3); EGFR African American 90.7 (>60); EGFR Non-African American 70.5 (>60); Potassium 3.9 mmol/L (3.5-5.0)
[2016-05-09 06:53] LABS: Erythrocyte Sed Rate 87 mm/Hr (0-14)
[2016-05-09] MEDS: Docusate CAP* 100 MG PO SCH ×2 (08:46→21:17)
--- NOTE | 2016-05-09 09:35 | PN ---
Progress Note - Progress Note SOAP: Subjective: []Patient seen OOB in chair. Just ambulated around the unit with PT. Pain well managed. No other complaints. Objective: [] Vital Signs Temp 97.7 F 05/09/16 07:38 Pulse 63 05/09/16 07:38 Resp 18 05/09/16 08:45 BP 107/56 05/09/16 07:38 Pulse Ox 94 05/09/16 07:38 Intake & Output 05/08/16 05/09/16 05/09/16 18:59 06:59 18:59 Intake Total 1300 2080 Output Total 450 Balance 1300 1630 Weight 328 lb 3.2 oz Intake: IV Fluids 1300 140 ANCEF, 3GMS 100 NS (0.9%) 20 lr 1200 oxicillin 120 IVPB 130 NS (0.9%) 20 oxicillin 110 Oral 1810 Output: Urine 450 Laboratory Results - last 24 hr 05/09/16 05/09/16 05:45 05:45 WBC 4.2 RBC 4.06 Hgb 11.9 L Hct 36 L MCV 88 MCH 29 MCHC 33 RDW 13 Plt Count 168 MPV 7 L Neut % (Auto) 42.9 Lymph % (Auto) 35.6 [place] % (Auto) 17.1 H Eos % (Auto) 3.3 Baso % (Auto) 1.1 Absolute Neuts (auto) 1.8 Absolute Lymphs (auto) 1.5 Absolute Monos (auto) 0.7 Absolute Eos (auto) 0.1 Absolute Basos (auto) 0 Absolute Nucleated RBC 0 Nucleated RBC % 0 ESR 87 H Sodium 137 Potassium 3.9 Chloride 103 Carbon Dioxide 31 Anion Gap 3 BUN 18 Creatinine 1.13 Est GFR ( Amer) 90.7 Est GFR (Non-Af Amer) 70.5 BUN/Creatinine Ratio 15.9 Glucose 110 H Calcium 8.5 L C-Reactive Protein 128.52 H Right knee CLAIRE from foot to thigh C/D/I calf nontender and soft +DF/PF no drain Assessment: []s/p repeat I&D arthroscopic washout POD #1 for MSSA infection Plan: []Continue IV Oxacillin as outlined by Dr. Dumont, await re evaluation PT WBAT, ROM Follow labs/CRP
[2016-05-09] MEDS: Ibuprofen TAB* 600 MG PO PRN (09:49)
--- NOTE | 2016-05-09 10:10 | OP ---
DATE OF OPERATION: 05/08/16 - ROOM #333 DATE OF : 72 ATTENDING SURGEON: Jenifer Betancourt MD. PACKAGING MANAGER: None was available. ANESTHESIOLOGIST: Radha Gama MD. ANESTHESIA: General. PRE-OP DIAGNOSIS: Right knee septic arthritis. POST-OP DIAGNOSIS: Right knee septic arthritis. OPERATIVE PROCEDURE: Right knee arthroscopy with thorough lavage and irrigation and debridement. COMPLICATIONS: None. ESTIMATED BLOOD LOSS: Minimal. INDICATIONS: Mr. Luis Manuel Lacy is a 45-year-old gentleman, who underwent recent partial meniscectomy several weeks ago. He was seen in the office approximately 10 days ago. His sutures were removed. His portal site opened and created a fistula. He was monitored for the next few days. He developed a septic arthritis. He was washed out by my partner, Dr. Atkinson. He was discharged after postop day #2 with a drain, but after the drain was pulled this past weekend, he developed increasing swelling and more pain and pain with weightbearing. He started to report subjective fevers. He presented to the ED last evening and an aspiration was done, which demonstrated 29,000 white blood cells and a PCR that was positive for staph. The patient was on antibiotics, on oxacillin. He was symptomatic. He was evaluated by Dr. Atkinson in the office today and after discussion with the patient, we discussed that he requires an emergent irrigation and debridement. After discussion of the risks and benefits of surgery including prolonged infection, need for further surgery, incomplete relief of symptoms, persistent pain, stiffness, arthritis, risks of anesthesia, he has elected to proceed with surgery. DESCRIPTION OF PROCEDURE: The patient was greeted in the preoperative area by the attending surgeon. The correct extremity was marked. Consent was confirmed. The patient was brought back to the operating suite where he was placed in the supine position on the operating table. He then underwent general anesthesia and LMA intubation after which the tourniquet was placed high on the proximal thigh. The lateral post was positioned. The leg was examined. There was the previous portal sites as well as the drain site. There was no obvious erythema, but it was mildly warm and there was an effusion that was present. The right knee was prepped and draped in the usual sterile fashion with a pre-scrub of chlorhexidine soap and alcohol wipe and a final prep with ChloraPrep. After appropriate surgical pause indicating side and site of the procedure, administration of antibiotics, the sutures were removed from the previous portal site. The portals were widened using a straight clamp and the scope was brought into the joint. There was a large hemarthrosis with cloudy purulent drainage that was apparent as well. This was removed from the joint. The scope was positioned and the fluid was run through, the medial portal was accessed again and the shaver was then brought through this portal. There was abundant inflamed bloody tissue as well as blood clot that was carefully removed. His trochlea had grade 0-1 changes, the patella had a small area of grade 2 changes, the medial foramen had grade 2 changes with evidence of previous partial meniscectomy. ACL and PCL were intact, lateral meniscus was intact. The gutters were intact. There was abundant synovitic tissue that was present. Again, this was thoroughly lavaged. 12 liters of sterile saline was run through the knee with the shaver for turbulent flow. After this lavage was complete, the portal sites were carefully scrubbed down with sterile saline. The portals were then closed with 3-0 nylon in an interrupted fashion. Sterile dressings were applied and the patient was awoken from anesthesia in a stable condition. POSTOPERATIVE PLAN: He will be admitted to my service. ID will be consulted again. He will continue with oxacillin. We will have him on pain medications, including Percocet as well as antiinflammatories. DVT prophylaxis will be considered and will be heparin as well as SCDs while at home when he will be discharged home without heparin. We will follow along the patient, he may need another I and D tomorrow. We will check labs to assess his count. [id number]/[facility] #: [id number] [facility] HOSPITALCady
[2016-05-09] MEDS ORDERED: Ketorolac INJ* 30 MG/ML 1 ML VIAL IV PUSH PRN (14:49)
[2016-05-09] MEDS ORDERED: Ketorolac INJ* 30 MG/ML 1 ML VIAL ONE (14:56)
--- NOTE | 2016-05-09 15:42 | PN ---
Progress Note - Progress Note SOAP: Subjective: DOS: 05/09/16 CC: septic knee HPI: 45 yo man with septic right knee, had I&D 05/02, went home on oxacillin, low grade fever over the weekend with more swelling and pain with weight bearing. Fluid aspirated 05/08 20129 WBC, MSSA PCR positive. Readmitted yesterday and had another I&D. Tolerating antibiotics well. No fever, rash, or diarrhea. Objective: [] Vital Signs Temp 36.6 C 05/09/16 15:11 Pulse 67 05/09/16 15:11 Resp 18 05/09/16 15:11 BP 108/63 05/09/16 15:11 Pulse Ox 94 05/09/16 15:11 Intake & Output 05/08/16 05/09/16 05/09/16 18:59 06:59 18:59 Intake Total 1300 2080 545 Output Total 450 800 Balance 1300 1630 -255 Weight 328 lb 3.2 oz Intake: IV Fluids 1300 140 30 ANCEF, 3GMS 100 NS (0.9%) 20 30 lr 1200 oxicillin 120 IVPB 130 105 NS (0.9%) 20 oxicillin 110 105 Oral 1810 410 Output: Urine 450 800 Gen:No distress Neuro:AAOX3 HEENT:PERLL, MMM Neck:Supple Heart:RRR no murmur Lungs:CTA BL Abd:+BS NTND soft Skin: No rash MSK: right knee edema and mild warmth Laboratory Results - last 24 hr 05/09/16 05/09/16 05:45 05:45 WBC 4.2 RBC 4.06 Hgb 11.9 L Hct 36 L MCV 88 MCH 29 MCHC 33 RDW 13 Plt Count 168 MPV 7 L Neut % (Auto) 42.9 Lymph % (Auto) 35.6 [place] % (Auto) 17.1 H Eos % (Auto) 3.3 Baso % (Auto) 1.1 Absolute Neuts (auto) 1.8 Absolute Lymphs (auto) 1.5 Absolute Monos (auto) 0.7 Absolute Eos (auto) 0.1 Absolute Basos (auto) 0 Absolute Nucleated RBC 0 Nucleated RBC % 0 ESR 87 H Sodium 137 Potassium 3.9 Chloride 103 Carbon Dioxide 31 Anion Gap 3 BUN 18 Creatinine 1.13 Est GFR ( Amer) 90.7 Est GFR (Non-Af Amer) 70.5 BUN/Creatinine Ratio 15.9 Glucose 110 H Calcium 8.5 L C-Reactive Protein 128.52 H 05/02 synovial fluid MSSA PCR pos, culture negative Assessment: 1. right knee pain and swelling s/p repeat I&D. The PCR was positive, may have detected organisms, culture negative to date. 2. obesity 3. [id number] 4. elevated CRP due to infection and surgery 5. knee pain Plan: 1. continue oxacillin 2 gm IV Q4hrs and weekly lab monitoring when ready for discharge. 35 minutes floor time >50% in counseling and coordinating care regarding course and treatment of Staphylococcal joint infection and arranging antibiotic treatment for discharge.
--- NOTE | 2016-05-09 16:29 | PN ---
Progress Note - Progress Note Note: POD#1 from I and D of right knee for septic arthritis. Doing well although after PT had increased pain not responsive to narcotics. Had a dose of toradol which helped a lot. Icing and sitting in chair currently. Mild tingling in toes Temp Pulse Resp BP Pulse Ox 97.8 F 67 18 108/63 94 05/09/16 15:11 05/09/16 15:11 05/09/16 15:11 05/09/16 15:11 05/09/16 15:11 NAD. RLE: dressing in place, calf soft and nontender. SILT grossly distally. Able to DF/PF foot. Brisk cap refill. Laboratory Results - last 24 hr 05/09/16 05/09/16 05:45 05:45 WBC 4.2 RBC 4.06 Hgb 11.9 L Hct 36 L MCV 88 MCH 29 MCHC 33 RDW 13 Plt Count 168 MPV 7 L Neut % (Auto) 42.9 Lymph % (Auto) 35.6 [place] % (Auto) 17.1 H Eos % (Auto) 3.3 Baso % (Auto) 1.1 Absolute Neuts (auto) 1.8 Absolute Lymphs (auto) 1.5 Absolute Monos (auto) 0.7 Absolute Eos (auto) 0.1 Absolute Basos (auto) 0 Absolute Nucleated RBC 0 Nucleated RBC % 0 ESR 87 H Sodium 137 Potassium 3.9 Chloride 103 Carbon Dioxide 31 Anion Gap 3 BUN 18 Creatinine 1.13 Est GFR ( Amer) 90.7 Est GFR (Non-Af Amer) 70.5 BUN/Creatinine Ratio 15.9 Glucose 110 H Calcium 8.5 L C-Reactive Protein 128.52 H A/P POD# from repeat washout. feeling better but had increased pain after working with PT. ice/elevate analgesia. cont toradol. SCDs and heparin for dvt ppx eval tomorrow for possible repeat I and D. cont abx
[2016-05-09] MEDS: Enoxaparin(*) 40 MG/0.4 ML SYR SUBCUT SCH (21:16)
[2016-05-10] MEDS: Oxacillin(*) 2 GM in NS 0.9% 100 ML* 100 ML IVPB SCH ×4 (02:27→20:27)
[2016-05-10] MEDS: oxyCODONE/Acetamin 5/325 MG* TAB PO PRN ×3 (08:08→21:27)
[2016-05-10] MEDS: Docusate CAP* 100 MG PO SCH ×2 (08:12→21:27)
--- NOTE | 2016-05-10 10:02 | PN ---
Progress Note - Progress Note Note: final body fluid gram stain results obtained. no organisms or culture growth on body fluid stain. MRSA/S. aureua SSTI PCR final negative for MRSA and positive for S Aureus. Patient is an inpatient currently being treated with oxacillin.
--- NOTE | 2016-05-10 10:07 | PN ---
Progress Note - Progress Note SOAP: Subjective: DOS: 05/10/16 CC: septic knee HPI: 45 yo man with septic right knee, had I&D 05/02, went home on oxacillin, low grade fever over the weekend with more swelling and pain with weight bearing. Fluid aspirated 05/08 04383 WBC, MSSA PCR positive, culture negative. Had another I&D. Tolerating antibiotics well. No fever, rash, or diarrhea. Pain with weight bearing, another look planned today. Objective: [] Vital Signs Temp 36.3 C 05/10/16 07:57 Pulse 82 05/10/16 07:57 Resp 15 05/10/16 08:08 BP 134/72 05/10/16 07:57 Pulse Ox 96 05/10/16 07:57 Intake & Output 05/09/16 05/10/16 05/10/16 18:59 06:59 18:59 Intake Total 696 1330 Output Total 1050 250 Balance -354 1080 Intake: IV Fluids 181 280 NS (0.9%) 60 50 oxicillin 121 230 IVPB 105 oxicillin 105 Oral 410 1050 Output: Urine 1050 250 Gen:No distress Neuro:AAOX3 HEENT:PERLL, MMM Neck:Supple Heart:RRR no murmur Lungs:CTA BL Abd:+BS NTND soft Skin: No rash MSK: right knee edema and mild warmth 05/08 synovial culture negative Assessment: 1. right knee pain and swelling s/p repeat I&D. The PCR was positive, may have detected organisms, culture no growth. 2. obesity 3. [id number] 4. elevated CRP due to infection and surgery 5. knee pain Plan: 1. continue oxacillin 2 gm IV Q4hrs, CBC and CRP 05/11.
--- NOTE | 2016-05-10 10:15 | PN ---
Progress Note - Progress Note SOAP: Subjective: []Patient seen at bedside. Pain managed. Toradol helped yesterday and has not needed a re dose. States Dr. Betancourt was in to evaluate this am and has decided to schedule repeat I&D washout this afternoon. Objective: [] Vital Signs Temp 97.4 F 05/10/16 07:57 Pulse 82 05/10/16 07:57 Resp 15 05/10/16 08:08 BP 134/72 05/10/16 07:57 Pulse Ox 96 05/10/16 07:57 Intake & Output 05/09/16 05/10/16 05/10/16 18:59 06:59 18:59 Intake Total 696 1330 Output Total 1050 250 Balance -354 1080 Intake: IV Fluids 181 280 NS (0.9%) 60 50 oxicillin 121 230 IVPB 105 oxicillin 105 Oral 410 1050 Output: Urine 1050 250 Right knee dressing C/D/I swelling unchanged, no new drainage, no erythema calf non tender neuro intact Assessment: []Septic arthritis right knee Plan: []Remain NPO for repeat washout this afternoon with Dr. Betancourt. Continue IV Oxacillin
--- NOTE | 2016-05-10 10:42 | PN ---
Progress Note - Progress Note Note: Pt seen and examined early this AM. still with pain. effusion returned. last ate at 3 am. Temp Pulse Resp BP Pulse Ox 97.4 F 82 16 134/72 96 05/10/16 07:57 05/10/16 07:57 05/10/16 10:08 05/10/16 07:57 05/10/16 07:57 NAD. R knee with large effusion. tender to palpation. no erythema or warmth. able to df/pf foot. silt grossly distally. brisk cap refill. A/P septic arthritis with recurrent effusion and increased pain will washout this afternoon NPO consent signed and pt marked. plan is for right knee arthroscopic I and D.
[2016-05-10] MEDS ORDERED: Sodium Citrate/Citric Acid* 15 ML UDC ONE (15:41)
[2016-05-10] MEDS ORDERED: Propofol* 10 MG/ML 20 ML BTL IV PUSH ONE (15:42)
[2016-05-10] MEDS ORDERED: Lidocaine 2% PF * 5 ML VIAL ONE (15:42)
[2016-05-10] MEDS ORDERED: fentaNYL* 50 MCG/ML 2 ML VIAL (100 MCG VIAL) ONE ×2 (15:43→16:47)
[2016-05-10] MEDS ORDERED: Midazolam* 1 MG/ML 2 ML VIAL (2 MG) ONE (15:48)
[2016-05-10] MEDS: fentaNYL* 50 MCG/ML 2 ML VIAL (100 MCG VIAL) IV PRN ×2 (16:48→17:00)
[2016-05-10] MEDS ORDERED: oxyCODONE/Acetamin 5/325 MG* TAB ONE (17:11)
[2016-05-10] MEDS: Ibuprofen TAB* 600 MG PO PRN (19:24)
[2016-05-10] MEDS: Enoxaparin(*) 40 MG/0.4 ML SYR SUBCUT SCH (21:27)
[2016-05-11] MEDS: Oxacillin(*) 2 GM in NS 0.9% 100 ML* 100 ML IVPB SCH ×4 (02:41→20:26)
[2016-05-11] MEDS: oxyCODONE/Acetamin 5/325 MG* TAB PO PRN ×4 (03:35→20:23)
[2016-05-11] MEDS ORDERED: Magnesium Hydroxide LIQ* 30 ML UDC PO PRN (08:42)
[2016-05-11] MEDS ORDERED: Lactulose* 15 ML UDC PO PRN (08:44)
--- NOTE | 2016-05-11 09:09 | PN ---
Progress Note - Progress Note SOAP: Subjective: []Patient seen at bedside, working with PT on ROM. Pain well managed. Objective: [] Vital Signs Temp 97.4 F 05/11/16 07:28 Pulse 67 05/11/16 07:28 Resp 16 05/11/16 07:38 BP 110/61 05/11/16 07:28 Pulse Ox 97 05/11/16 07:28 Intake & Output 05/10/16 05/11/16 05/11/16 18:59 06:59 18:59 Intake Total 1240 1290 Output Total 1300 1450 400 Balance -60 -160 -400 Weight 328 lb 3.2 oz Intake: IV Fluids 1000 290 NS (0.9%) 50 lr 1000 oxicillin 240 Oral 240 1000 Output: Urine 1300 1450 400 Microbiology 05/10/16 16:01 Gram Stain - Final Body Fluid - Knee Right Skin and Soft Tissue MRSA/MSSA (PCR - Final Mrsa Negative S.aureus Positive Right knee CLAIRE from foot to knee intact and dry neuro intact calf non tender Assessment: [] s/p re peat right knee arthroscopy washout X3 for MSSA septic arthritis POD #1 Plan: []PT WBAT Continue IV ABX per Dr. Dumont Home in 1- 2 days
[2016-05-11] MEDS: Docusate CAP* 100 MG PO SCH ×2 (09:23→20:24)
--- NOTE | 2016-05-11 10:15 | PN ---
Progress Note - Progress Note Note: Final fluid culture results obtained. Negative for MRSA and positive for MSSA. Patient is still an inpatient, post-op knee arthroscopy due to septic arthritis. Staff is aware or MRSA negative. Is still receiving Oxacillin IV for MSSA. No further changes needed at this time.
--- NOTE | 2016-05-11 11:33 | PN ---
Progress Note - Progress Note SOAP: Subjective: DOS: 05/11/16 CC: septic knee HPI: 45 yo man with septic right knee, had I&D 05/02, went home on oxacillin, low grade fever over the weekend with more swelling and pain with weight bearing. Fluid aspirated 05/08 10342 WBC, MSSA PCR positive, culture negative. Has had 2 I&D this admission. No problems with PICC. No fever, rash, or diarrhea. Leg more immobilized by wrap today. Objective: [] Vital Signs Temp 36.3 C 05/11/16 07:28 Pulse 67 05/11/16 07:28 Resp 18 05/11/16 09:38 BP 110/61 05/11/16 07:28 Pulse Ox 97 05/11/16 08:00 Intake & Output 05/10/16 05/11/16 05/11/16 18:59 06:59 18:59 Intake Total 1240 1290 450 Output Total 1300 1450 400 Balance -60 -160 50 Weight 328 lb 3.2 oz Intake: IV Fluids 1000 290 130 NS (0.9%) 50 20 lr 1000 oxicillin 240 110 Oral 240 1000 320 Output: Urine 1300 1450 400 Gen:No distress Neuro:AAOX3 HEENT:PERLL, MMM Neck:Supple Heart:RRR no murmur Lungs:CTA BL Abd:+BS NTND soft Skin: No rash MSK: right knee edema and mild warmth Microbiology 05/10/16 16:01 Gram Stain - Final Body Fluid - Knee Right Body Fluid Culture - Preliminary No Growth Day 1 Anaerobic Culture - Preliminary No Growth Day 1 Skin and Soft Tissue MRSA/MSSA (PCR - Final Mrsa Negative S.aureus Positive Assessment: 1. right knee pain and swelling s/p repeat I&D. The PCR was positive, culture no growth. 2. obesity 3. [id number] 4. elevated CRP due to infection and surgery 5. knee pain Plan: 1. continue oxacillin 2 gm IV Q4hrs which I believe is the correct antibiotic for the infection. Not completely surprising to have continued pain and inflammation at this stage of the infection. Discussed with Dr Betancourt.
--- NOTE | 2016-05-11 12:07 | OP ---
DATE OF OPERATION: 05/10/16 - ROOM #333 DATE OF : 72 SURGEON: Jenifer Betancourt MD [employer]CIAL FLOOR COVERING INSTALLER: None. ANESTHESIOLOGIST: Surendra Freeman DO. ANESTHESIA: General. PRE-OP DIAGNOSIS: Right knee hematoma and persistent infection. POST-OP DIAGNOSIS: Right knee hematoma and persistent infection. OPERATIVE PROCEDURE: Right knee aspiration as well as arthroscopic irrigation and debridement. COMPLICATIONS: None. ESTIMATED BLOOD LOSS: 50 cc. INDICATIONS: Luis Manuel Lacy is a 45-year-old gentleman who had a previous meniscectomy that subsequently got infected after his portal did not close. Then he has had 2 subsequent wash-outs. He was on the floor. He is postop day #2 from his most recent washout and he was having persistent pain and a large effusion. The knee was getting warm but nonerythematous. He was concerned that he was having increased pain. Therefore, after a discussion with the patient, we elected to proceed with irrigation and debridement done arthroscopically. He has elected to proceed. Risks include but are not limited to bleeding, infection, damage to nerves, vessels or surrounding structures, persistent infection, persistent pain, arthritis, risks of anesthesia, risk of DVTs. DESCRIPTION OF PROCEDURE: The patient was greeted in the preoperative area by the attending surgeon. Correct extremity was marked and consent was confirmed. The patient was then brought back to the operating suite where he was placed in the supine position and underwent general anesthesia with LMA intubation, which he tolerated without difficulty. A nonsterile tourniquet was placed high in the proximal thigh. The lateral post was positioned. The right leg was then prepped and draped in the usual sterile fashion beginning with chlorhexidine soap scrub and alcohol wipe and a final prep with ChloraPrep. After appropriate surgical pause, indicating side, and site of the procedure, administration of antibiotics, the previous portals were opened up with the straight snap. The trocar was introduced prior to actually beginning the scope. Approximately 40 cc of sanguineous material was removed from the knee and sent for Gram stain and culture. The scope was then introduced and then the joint was thoroughly lavaged. The medial compartment was examined and there were no further chondral changes. The lateral compartment was examined as well. The joint was sterilely lavaged. There was abundant hyperemic tissue that was removed. The electrocautery was used to cauterize any friable tissue and bleeding. A total of 12 L of sterile saline were used to irrigate the knee. Final images were obtained. The portals were closed with 3-0 nylon. After all fluids and debris was evacuated, sterile dressings were applied. He was then awoken from anesthesia and transferred to the PACU in stable condition. POSTOPERATIVE PLAN: He will continue his oxacillin. He will be allowed to be weightbearing as tolerated. We will work on ice and compression. We will follow the Gram stain results from today's lab. He will get repeat labs in the morning, and we will potentially discharge him in 1 to 2 days. DVT prophylaxis will be heparin and SCDs while he is in house. [id number]/[facility] #: [id number] KADEN
--- NOTE | 2016-05-11 12:09 | PN ---
Progress Note - Progress Note Note: seen and examined early this AM. no acute distress. discomfort but not the same as previously. able to range knee more comfortably. NAD. right leg dressing in place. less swelling. calf soft, nt. brisk cap refill. silt grossly distally. A/P right knee s/p 3 I and D's cont abx. will monitor discussed pain may need to be better adjusted could try oxy ir 10-15 mg q3 hrs. tylenol 975 TID. with ibuprofen. potential discharge tomorrow if comfortable PT/OT- WBAT
[2016-05-11] MEDS: Enoxaparin(*) 40 MG/0.4 ML SYR SUBCUT SCH (20:24)
[2016-05-12] MEDS: oxyCODONE/Acetamin 5/325 MG* TAB PO PRN ×2 (00:28→04:43)
[2016-05-12] MEDS: Oxacillin(*) 2 GM in NS 0.9% 100 ML* 100 ML IVPB SCH ×2 (03:30→08:40)
[2016-05-12] MEDS: Morphine INJ* 2 MG/ML 1 ML CARPUJECT IV PRN (04:44)
[2016-05-12] MEDS ORDERED: oxyCODONE TAB* 5 MG TAB PO PRN (07:34)
--- NOTE | 2016-05-12 08:37 | PN ---
Progress Note - Progress Note SOAP: Subjective: [] Objective: [] Assessment: [] Plan: []
[2016-05-12] MEDS: oxyCODONE TAB* 5 MG TAB PO PRN ×2 (08:41→12:24)
[2016-05-12] MEDS: Docusate CAP* 100 MG PO SCH (08:43)
[2016-05-12] MEDS ORDERED: oxyCODONE SR TAB(*) 10 MG TAB.SR PO SCH (09:00)
--- NOTE | 2016-05-12 11:21 | PN ---
Progress Note - Progress Note SOAP: Subjective: [45 y/o male s/p I&D x 3. Patient reports pain better controlled, medication changed by Dr Betancourt. Overall feeling better, feels OK to go home today. VSS afebrile overnight. ] Objective: [General- well appearing, NAD MSK- PT pulse 2+ skin intact, no drainage noted, no erythema. ] Vital Signs Temp 97.7 F 05/12/16 07:52 Pulse 74 05/12/16 07:52 Resp 18 05/12/16 10:27 BP 166/86 05/12/16 07:52 Pulse Ox 97 05/12/16 07:52 Intake & Output 05/11/16 05/12/16 05/12/16 18:59 06:59 18:59 Intake Total 1420 1560 300 Output Total 1700 1325 500 Balance -280 235 -200 Intake: IV Fluids 260 NS (0.9%) 40 oxicillin 220 Oral 1160 1560 300 Output: Urine 1700 1325 500 Other: # Bowel Movements 0 0 Estimated Stool Amount Medium Assessment: [45 y/o male s/p R knee I&D x 3] Plan: [- D/C to home today - FOllow up with Dr. Betancourt within 10 days
[2016-05-12 12:11] VITALS: BP 130/77
--- NOTE | 2016-05-15 03:59 | DS ---
DISCHARGE SUMMARY: DATE OF ADMISSION: 05/08/16 DATE OF DISCHARGE: 05/12/16 CHIEF COMPLAINT: 1. Septic right knee, status post arthroscopic evaluation. 2. Lymph node excision in neck. DISCHARGE DIAGNOSIS: Septic right knee, status post 2 arthroscopic washouts. PROCEDURES: 1. Right knee arthroscopic irrigation and debridements/washout, 05/08/16. 2. Arthroscopic irrigation, 05/10/16. BRIEF HISTORY: Mr. Lacy is a very pleasant 45-year-old gentleman with a history of septic knee for which he had undergone an I and D on 05/02 and was hospitalized and discharged on 05/03/16; however, his symptoms reoccurred and the patient was admitted on 05/08/16 with low-grade fever, increased swelling, and pain. HOSPITAL COURSE: Mr. Lacy was admitted to [facility] on 05/08/16 where he underwent an arthroscopic irrigation and debridement with Dr. Betancourt. Postoperatively, he recovered on the surgical short stay unit and cultures from 05/08/16 were positive for Staphylococcus aureus, MRSA negative. He was continued on IV oxacillin for antibiotic use after consultation with Dr. Dumont. A second washout was performed on 05/10/16 after the patient's pain continued and his effusion returned. Cultures from this date were again positive for Staph aureus, MRSA negative. The patient's pain regimen was changed on 05/12/16 to a long- and short-acting narcotics, which the patient tolerated well and provided him adequate pain relief. He worked well with physical and occupational therapy. His DVT prophylaxis was managed with Lovenox while he was an inpatient, but 05/12/16, he was deemed orthopedically and medically stable for discharge to home with home services. PHYSICAL EXAMINATION: General: Well appearing, no acute distress, alert and oriented, resting in bed comfortably. Vital Signs: Temp 97.7, pulse 74, respirations 18, blood pressure 166/86, pulse oxygenation 97% on room air. Examination of the right lower extremity shows an intact dressing without any drainage or erythema. Negative Homans sign, right calf. Positive dorsiflexion and plantar flexion, right ankle. Posterior tibial pulse 2+. LABORATORY DATA ON DATE OF DISCHARGE: None taken. DISCHARGE MEDICATIONS: 1. Dulcolax 100 mg p.o. b.i.d. 2. Ibuprofen 600 mg p.o. q.6 hours. 3. OxyContin 10 mg p.o. q.12 hours. 4. Oxycodone 5 to 15 mg p.o. q.3 hours p.r.n. 5. Trazodone 25 mg p.o. q.h.s. 6. Aspirin 325 mg p.o. daily. 7. Oxacillin 2 g IV q.4 hours per ID. CONDITION ON DISCHARGE: Stable. DISCHARGE INSTRUCTIONS: Mr. Lacy is a very pleasant 45-year-old gentleman status post right septic knee washout. He is orthopedically and medically stable for discharge to go home with home services. His vitals and labs are stable. He will restart his home medications. He will take aspirin 325 mg p.o. daily for DVT prophylaxis. He will be weightbearing as tolerated on the right lower extremity. He will have home physical therapy. He will take OxyContin and oxycodone as needed for pain control. He will take Colace up to 3 times a day for constipation. He will follow up with Dr. Betancourt in approximately 7 to 10 days for incision check, suture removal, and followup and he is instructed to go to the ER should he develop chest pain or shortness of breath. Should he develop fever, increasing pain, or redness, he is to call the office immediately. GARO WOODSON [id number]/[facility] #: [id number] MTDCady
== END 2016-05-12 14:05 | disposition home or self-care (01) | DRG 313 ==
LOC: OR 15:24 → INTOOBSV 18:16 → SSU 18:16 → OBSVTOIN 05-09 10:00
PROVIDERS: ADMIT Orthopaedic Surgery; ATTEND Orthopaedic Surgery
PROC: 0SBC4ZZ Excision of Right Knee Joint, Percutaneous Endoscopic Approach (ICD-10-PCS; principal; 2016-05-08 16:00)
PROC: 0SBC4ZZ Excision of Right Knee Joint, Percutaneous Endoscopic Approach (ICD-10-PCS; 2016-05-10)
DX: M00.061 Staphylococcal arthritis, right knee (principal); M25.061 Hemarthrosis, right knee; B95.61 Methicillin susceptible Staphylococcus aureus infection as the cause of diseases classified elsewhere; E11.9 Type 2 diabetes mellitus without complications; E66.9 Obesity, unspecified; M25.461 Effusion, right knee; R26.2 Difficulty in walking, not elsewhere classified; Z68.37 Body mass index [BMI] 37.0-37.9, adult
CPT/HCPCS: 36415; 80048; 85025; 85652; 86140; 87070; 87073; 87205; 87640; 87641; A9270-GY; J0690; J1170; J1650; J1885; J2250; J2270; J2405; J2700; J2704; J3010

== ENCOUNTER 2017-05-03 09:09 | Inpatient (IN) | payer BC ==
--- NOTE | 2017-04-27 14:52 | HP ---
AMENDED REPORT NOW INCLUDES COSIGNER DESIGNATION - ESIGNED BEFORE ADJUSTMENT HISTORY AND PHYSICAL: DATE OF ADMISSION/SURGERY: 05/03/17 DATE OF OFFICE VISIT: 04/27/17 SURGEON: Irasema Acevedo MD * (DICTATED BY GAOR MENDEZ) PROCEDURE: Right total knee arthroplasty. CHIEF COMPLAINT: Right knee pain. HISTORY OF PRESENT ILLNESS: Gaston is a 46-year-old gentleman who continues to have significant right knee pain. He has failed conservative management and elected to proceed with a right total knee arthroplasty, which is scheduled for 05/03/17. PAST MEDICAL HISTORY: Chronic pain syndrome. PAST SURGICAL HISTORY: Right knee arthroscopy x2, I and D of the right knee x3 , and a lymph node removal. CURRENT MEDICATIONS: Nucynta 75 mg every 4 hours as needed. ALLERGIES: None. FAMILY HISTORY: AFib. SOCIAL HISTORY: He is a 46-year-old gentleman, lives alone. 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 He does not smoke or use drugs. Uses occasional alcohol. REVIEW OF SYSTEMS: A complete 14-point review of systems was reviewed with the patient and it was all negative or noncontributory. PHYSICAL EXAMINATION GENERAL: He is well developed, well nourished, in no acute distress. VITAL SIGNS: He stands 6 feet 6 inches tall, weighs 335 pounds. His blood pressure is 138/80 and his heart rate is 80. HEENT: Normocephalic, atraumatic. NECK: Supple. No palpable lymph nodes. PULMONARY: The lungs are clear to auscultation bilaterally. CARDIO: Regular rate and rhythm. Strong S1 and S2. ABDOMEN: Soft, nontender, nondistended. MUSCULOSKELETAL: Right lower extremity, the skin is intact. There are no open wounds or abrasions. There are 2 well-healed medial and lateral portal incisions from prior scope. Range of motion is 10 to 120 degrees of flexion with patellofemoral crepitus, 5/5 lower extremity strength, 2+ dorsalis pedis pulses and intact sensation. There is a moderate effusion. NEUROLOGIC: He is alert and oriented x3. Cranial nerves II through XII are intact. ASSESSMENT AND PLAN: Gaston is a 46-year-old gentleman. 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 He has failed conservative management and elected to proceed with a right total knee arthroplasty, which is scheduled for 05/03/[address] Acevedo discussed the risks and benefits of the surgery at today's visit and all of his questions were answered. He will follow up with Dr. Acevedo in 2 weeks after the surgery. GARO MENDEZ [id number]/[facility] #: [id number] MTDCady
[~2017-05-03 09:09] MED LIST changes: +Acetaminophen IV 1GM/100ML * 1,000 MG/100 ML VIAL IVPB ONE; +Buffered Lidocaine 0.9% SYRIN* 5 ML/SYR SYRINGE INTRADERM ONE; -EPINEPHrine AMP 1 MG/ML ONE; +Famotidine IV* 10 MG/ML 2 ML (20 mg) IV ONE; +Gabapentin CAP(*) 300 MG PO ONE; +Ketorolac INJ* 30 MG/ML 1 ML VIAL IV ONE; +Metoclopramide TAB* 10 MG PO ONE
--- OUTSIDE RECORDS SUMMARY | 2017-05-03 09:40 | XMS REPORT ---
:1970 External Reference #:[id number] Author Organization [facility] Address [address] [address] Phone [phone] Care Team Providers Name Role Phone Bhupinder Zarate III, MD Primary Care Physician Unavailable Payers Type Date Identification Numbers Payment Provider Subscriber Health Maintenance Policy Number: [facility] [place] ([facility] [place] [id number] Group Number: [id number] [address] [address] PayID: [id number] MELANIE Fleming [id number] Medigap Part B Effective: 03/05/2016 Policy Number: BS [facility] Luis Manuel Lacy [id number] Expires: 08/03/2016 Group Number: [id number] [address] [id number] PayID: [id number] MELANIE Horta [id number] Problems Date Description Provider Status Onset: 12/14/2014 Current tear of medial cartilage AND/OR Jenifer Betancourt MD Active meniscus of knee Onset: 03/21/2016 Chondromalacia Jenifer Betancourt MD Active Onset: 03/21/2016 Current tear of lateral cartilage AND/OR Jenifer Betancourt MD Active meniscus of knee Onset: 03/21/2016 Knee joint effusion Jenifer Betancourt MD Active Onset: 05/16/2016 Staphylococcal arthritis Jenifer Betancourt MD Active Onset: 05/23/2016 Disorder of shoulder Jenifer Betancourt MD Active Onset: 06/27/2016 Infection following a procedure, subsequent Jenifer Betancourt MD Active encounter Onset: 08/04/2016 Localized, primary osteoarthritis Jenifer Betancourt MD Active Onset: 08/04/2016 Knee pain Jenifer Betancourt MD Active Onset: 10/12/2016 Disorder of breast Jenifer Betancourt MD Active Family History Date Family Member(s) Problem(s) Comments General No Current Problems Father Atrial Fibrillation ? 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 hour hours MDD 4 Meloxicam 10/19 Hx Tablets 60tab take one Bhupinder Nathan s tab twice Tessa, - daily as M.D. 04/26 needed for pain, avoid other nsaids Amoxicillin/Clavulan 10/19 Hx Tablets 500-125mg 10tab 1 by N64.9 Bhupinder Nathan ate s mouth Tessa, - twice a M.D. 12/06 day Methylprednisolone 08/07 Hx TBPK 4mg 21uni 6 by ts mouth day , - 1, 5 by 09/08 mouth day 2, 4 by mouth day 3, 3 by mouth day 4, 2 by mouth day 5, 1 by mouth day 6 Oxycodone HCL 07/20 Hx Tablets 5mg 40tab 1-2 tabs s by mouth , - every 12 10/18 hours needed Sulfamethoxazole/Tri 06/08 Hx Tablets 800-160mg 42tab 1 by M00.061 Yadiel methoprim s mouth D. - twice Judy, 08/03 daily M.D. Oxycodone HCL 06/06 Hx Capsules 5mg 60cap 1-2 tabs M00.061 ne s every 12 Alanase, - hours as 06/04 needed for pain Cefazolin Sodium 05/23 Hx Solution 1gm 2 gm iv Yadiel Rec every 8 D. - hours Judy 08/03 through M.D. /2017 [facility] infusion (ending 06/07/16) Colace 05/12 Hx Capsules 100mg 60cap one s tablet [place], - twice 08/03 post-oper atively Ibuprofen 05/12 Hx Tablets 600mg 90tab 600mg s every 6 Yaseen, - hours as 05/12 needed for pain orally Oxycontin 05/12 Hx Tab ER 10mg 40tab 10mg 12H s every 12 Yaseen, - Abuse-Det hours po. 09/08 Oxycodone HCL 05/12 Hx Capsules 5mg 90cap one to s two [place], - tablets 06/06 every hours as needed for pain Oxycodone-Acetaminop 04/17 Hx Tablets 5-325mg 90tab 1-2 tabs tanja s by mouth [place], - every 4-6 06/04 hours needed for pain No Active 03/21 Hx Unknown Medications - 03/21 Diclofenac Sodium 03/21 Hx Tablets 75mg 60tab take [address] hamm tablet Asia, - twice a 10/18 day food PT Not Taking as Of 08/03/16 Mobic 04/06 Hx Tablets 15mg 60tab 1 by M94.261 s mouth Asia, - every day 03/20 Meloxicam 12/14 Hx Tablets 7.5mg 60tab take 2 S83.231A s with food Asia, - daily 03/20 Nortriptyline HCL 08/30 Hx Capsules 10mg 90cap 1-3 tabs Yanni Eduardo s by mouth Debra, - every M.D. 03/05 night directed Ibuprofen Hx Tablets 800mg po tid Unknown /0000 prn - 03/05 Tramadol HCL ER 00/ Hx Unknown /0000 - 03/20 Oxacillin Sodium Hx Solution 2gm iv every Unknown /0000 Rec 4 hours - on pump 05/23 advanced care x 28 days Aspirin Hx Tablets 325mg 1 by Unknown /0000 DR mouth - every day 08/03 Ibuprofen 00 Hx Tablets 800mg by mouth Unknown /0000 every 4 - hrs 09/08 Acetaminophen Hx Tablets 500mg 1-2 tabs Unknown /0000 3x a day - as needed 04/26 Medications Administered in Office Medication Date Status Form Strength Qnty SIG Indications Ordering Provider Triamcinolone 12/14/ Administered Injection Zaneb (Kenalog) 2016 MD [place] No Injection 05/02/ Administered Injection Chip F 2016 MD [place] Triamcinolone 04/06/ Administered Injection Zaneb (Kenalog) 2015 MD [place] Vital Signs Date Vital Result Comment 04/27/2017 Height 78 inches 6'6" Weight 335.00 lb Heart Rate 80 /min BP Systolic 138 mmHg BP Diastolic 80 mmHg BMI (Body Mass Index) 38.7 kg/m2 04/03/2017 Weight 338.00 lb Heart Rate 87 /min BP Systolic Sitting 130 mmHg BP Diastolic Sitting 82 mmHg Body Temperature 98.6 F O2 % BldC Oximetry 95 % 03/27/2017 Heart Rate 90 /min BP Systolic Sitting 136 mmHg BP Diastolic Sitting 88 mmHg Respiratory Rate 18 /min Body Temperature 98.6 F 02/12/2017 Height 78 inches 6'6" Weight 330.00 lb Heart Rate 80 /min BP Systolic Sitting 122 mmHg BP Diastolic Sitting 68 mmHg Respiratory Rate 16 /min Pain Level 2 BMI (Body Mass Index) 38.1 kg/m2 02/02/2017 Height 78 inches 6'6" Weight 330.00 lb BP Systolic 130 mmHg BP Diastolic 86 mmHg Body Temperature 97.6 F BMI (Body Mass Index) 38.1 kg/m2 01/30/2017 Height 78 inches 6'6" Weight 330.00 lb Heart Rate 72 /min Respiratory Rate 16 /min Body Temperature 98.1 F Pain Level 5 BMI (Body Mass Index) 38.1 kg/m2 01/23/2017 Height 78 inches 6'6" Weight 330.00 lb Heart Rate 76 /min Respiratory Rate 14 /min Body Temperature 97.8 F Pain Level 6 BMI (Body Mass Index) 38.1 kg/m2 12/28/2016 Height 78 inches 6'6" Weight 330.00 lb Heart Rate 55 /min Respiratory Rate 15 /min Body Temperature 97.6 F Pain Level 6 BMI (Body Mass Index) 38.1 kg/m2 12/14/2016 Height 78 inches 6'6" Weight 330.00 lb Heart Rate 73 /min BP Systolic 153 mmHg BP Diastolic 90 mmHg Body Temperature 97.3 F Pain Level 6 BMI (Body Mass Index) 38.1 kg/m2 12/07/2016 Heart Rate 77 /min BP Systolic Sitting 123 mmHg BP Diastolic Sitting 87 mmHg Body Temperature 97.2 F Pain Level 6 10/19/2016 Height 78 inches 6'6" Weight 324.00 lb Heart Rate 98 /min BP Systolic Sitting 112 mmHg BP Diastolic Sitting 80 mmHg Body Temperature 98.4 F O2 % BldC Oximetry 97 % BMI (Body Mass Index) 37.4 kg/m2 10/12/2016 Height 78 inches 6'6" Weight 330.00 lb Heart Rate 68 /min BP Systolic 131 mmHg BP Diastolic 88 mmHg Respiratory Rate 18 /min Pain Level 7 BMI (Body Mass Index) 38.1 kg/m2 09/11/2016 Height 78 inches 6'6" Weight 330.00 lb Heart Rate 88 /min BP Systolic 136 mmHg BP Diastolic 89 mmHg Body Temperature 97.6 F Pain Level 4 BMI (Body Mass Index) 38.1 kg/m2 08/22/2016 Height 78 inches 6'6" Weight 325.00 lb Heart Rate 76 /min BP Systolic 138 mmHg BP Diastolic 78 mmHg Respiratory Rate 18 /min Body Temperature 97.0 F Pain Level 4 BMI (Body Mass Index) 37.6 kg/m2 08/04/2016 Height 78 inches 6'6" Weight 325.00 lb Heart Rate 72 /min BP Systolic Sitting 136 mmHg BP Diastolic Sitting 82 mmHg Respiratory Rate 14 /min Body Temperature 98.7 F BMI (Body Mass Index) 37.6 kg/m2 08/02/2016 Height 78 inches 6'6" Weight 330.00 lb Heart Rate 80 /min BP Systolic Sitting 126 mmHg BP Diastolic Sitting 76 mmHg Respiratory Rate 16 /min Body Temperature 97.8 F Pain Level 7 BMI (Body Mass Index) 38.1 kg/m2 07/27/2016 Height 78 inches 6'6" Weight 330.00 lb Heart Rate 75 /min BP Systolic 134 mmHg BP Diastolic 81 mmHg Body Temperature 96.7 F Pain Level 6 BMI (Body Mass Index) 38.1 kg/m2 06/27/2016 Height 78 inches 6'6" Weight 320.00 lb Heart Rate 80 /min BP Systolic 139 mmHg BP Diastolic 98 mmHg Respiratory Rate 17 /min Body Temperature 98.3 F Pain Level 5 BMI (Body Mass Index) 37.0 kg/m2 06/08/2016 Height 78 inches 6'6" Weight 320.00 lb Heart Rate 72 /min BP Systolic Sitting 120 mmHg BP Diastolic Sitting 74 mmHg Respiratory Rate 14 /min Body Temperature 97.7 F BMI (Body Mass Index) 37.0 kg/m2 06/06/2016 Height 78 inches 6'6" Weight 329.00 lb Heart Rate 76 /min Respiratory Rate 16 /min Pain Level 0 BMI (Body Mass Index) 38.0 kg/m2 05/23/2016 Height 78 inches 6'6" Weight 329.00 lb Heart Rate 72 /min BP Systolic Sitting 132 mmHg BP Diastolic Sitting 88 mmHg Respiratory Rate 16 /min Body Temperature 97.6 F BMI (Body Mass Index) 38.0 kg/m2 05/16/2016 Height 78 inches 6'6" Weight 330.00 lb Heart Rate 68 /min BP Systolic Sitting 118 mmHg BP Diastolic Sitting 70 mmHg Respiratory Rate 16 /min Body Temperature 97.8 F Pain Level 4 BMI (Body Mass Index) 38.1 kg/m2 05/08/2016 Height 78 inches 6'6" Weight 200.00 lb Respiratory Rate 18 /min Body Temperature 97.8 F BMI (Body Mass Index) 23.1 kg/m2 05/02/2016 Height 78 inches 6'6" Weight 200.00 lb Heart Rate 88 /min BP Systolic 130 mmHg BP Diastolic 86 mmHg Respiratory Rate 18 /min Body Temperature 99.0 F Pain Level 10 BMI (Body Mass Index) 23.1 kg/m2 04/27/2016 Height 78 inches 6'6" Weight 200.00 lb Heart Rate 72 /min Respiratory Rate 18 /min Body Temperature 97.6 F Pain Level 6 BMI (Body Mass Index) 23.1 kg/m2 03/30/2016 Height 78 inches 6'6" Weight 200.00 lb Respiratory Rate 21 /min Pain Level 7 BMI (Body Mass Index) 23.1 kg/m2 03/21/2016 Height 78 inches 6'6" Weight 200.00 lb Respiratory Rate 16 /min Pain Level 7 BMI (Body Mass Index) 23.1 kg/m2 04/06/2015 Height 78 inches 6'6" Weight 300.00 lb BMI (Body Mass Index) 34.7 kg/m2 03/02/2015 Height 78 inches 6'6" Weight 300.00 lb Pain Level 3 BMI (Body Mass Index) 34.7 kg/m2 01/25/2015 Height 78 inches 6'6" Weight 300.00 lb Body Temperature 97.6 F Pain Level 1 BMI (Body Mass Index) 34.7 kg/m2 01/06/2015 Height 78 inches 6'6" Weight 300.00 lb Heart Rate 69 /min BP Systolic 112 mmHg BP Diastolic 78 mmHg BMI (Body Mass Index) 34.7 kg/m2 12/14/2014 Height 78 inches 6'6" Weight 300.00 lb Pain Level 7 BMI (Body Mass Index) 34.7 kg/m2 08/30/2012 Height 78 inches 6'6" Weight 285.00 lb Heart Rate 64 /min BP Systolic 110 mmHg BP Diastolic 68 mmHg Respiratory Rate 12 /min BMI (Body Mass Index) 32.9 kg/m2 Results Test Date Test Result H/L Range Note CBC Auto Diff 04/24/2017 White Blood Count 5.5 10^3/uL 3.5-10.8 1 Red Blood Count 4.88 10^6/uL 4.0-5.4 1 Hemoglobin 14.6 g/dL 14.0-18.0 1 Hematocrit 43 % 42-52 1 Mean Corpuscular Volume 89 fL 80-94 1 Mean Corpuscular Hemoglobin 30 pg 27-31 1 Mean Corpuscular HGB Conc 34 g/dL 31-36 1 Red Cell Distribution Width 13 % 10.5-15 1 Platelet Count 162 10^3/uL 150-450 1 Mean Platelet Volume 8 um3 7.4-10.4 1 Abs Neutrophils 2.9 10^3/uL 1.5-7.7 1 Abs Lymphocytes 1.9 10^3/uL 1.0-4.8 1 Abs Monocytes 0.6 10^3/uL 0-0.8 1 Abs Eosinophils 0.1 10^3/uL 0-0.6 1 Abs Basophils 0.1 10^3/uL 0-0.2 1 Abs Nucleated RBC 0.02 10^3/uL 1 Granulocyte % 52.7 % 38-83 1 Lymphocyte % 33.9 % 25-47 1 Monocyte % 11.0 % High 1-9 1 Eosinophil % 1.4 % 0-6 1 Basophil % 1.0 % 0-2 1 Nucleated Red Blood Cells % 0.3 1 Basic Metabolic Panel 04/24/2017 Sodium 137 mmol/L 133-145 1 Potassium 4.1 mmol/L 3.5-5.0 1 Chloride 101 mmol/L 101-111 1 Co2 Carbon Dioxide 30 mmol/L 22-32 1 Anion Gap 6 mmol/L 2-11 1 Glucose 107 mg/dL High 70-100 1 Blood Urea Nitrogen 22 mg/dL 6-24 1 Creatinine 0.95 mg/dL 0.67-1.17 1 BUN/Creatinine Ratio 23.2 High 8-20 1 Calcium 9.4 mg/dL 8.6-10.3 1 Egfr Non- 85.7 >60 1 Egfr 110.3 >60 1, 2 Inr/Protime 04/24/2017 Inr 1.08 High 0.77-1.02 1 Type & Screen 04/24/2017 Patient Blood Type AB Positive 1 Antibody Screen NEGATIVE 1 Urine Culture And Sensitivities 04/24/2017 Urine Culture SEE RESULT BELOW 1, 3 Lipid Profile (Trig/Chol/HDL) 04/24/2017 Triglycerides 339 mg/dL 1, 4 Cholesterol 237 mg/dL 1, 5 HDL Cholesterol 34.2 mg/dL 1, 6 LDL Cholesterol 135 mg/dL 1, 7 CBC Auto Diff 01/30/2017 White Blood Count 6.6 10^3/uL 3.5-10.8 Red Blood Count 5.57 10^6/uL High 4.0-5.4 Hemoglobin 16.5 g/dL 14.0-18.0 Hematocrit 49 % 42-52 Mean Corpuscular Volume 89 fL 80-94 Mean Corpuscular Hemoglobin 30 pg 27-31 Mean Corpuscular HGB Conc 34 g/dL 31-36 Red Cell Distribution Width 13 % 10.5-15 Platelet Count 186 10^3/uL 150-450 Mean Platelet Volume 8 um3 7.4-10.4 Abs Neutrophils 4.0 10^3/uL 1.5-7.7 Abs Lymphocytes 1.7 10^3/uL 1.0-4.8 Abs Monocytes 0.7 10^3/uL 0-0.8 Abs Eosinophils 0.1 10^3/uL 0-0.6 Abs Basophils 0 10^3/uL 0-0.2 Abs Nucleated RBC 0.02 10^3/uL Granulocyte % 61.3 % 38-83 Lymphocyte % 26.1 % 25-47 Monocyte % 10.7 % High 1-9 Eosinophil % 1.3 % 0-6 Basophil % 0.6 % 0-2 Nucleated Red Blood Cells % 0.3 Laboratory test finding 01/30/2017 Erythrocyte Sed Rate 23 mm/Hr High 0- 14 C Reactive Protein 2.25 mg/L < 5.00 8 CBC Auto Diff 12/07/2016 White Blood Count 4.7 10^3/uL 3.5-10.8 Red Blood Count 5.15 10^6/uL 4.0-5.4 Hemoglobin 15.4 g/dL 14.0-18.0 Hematocrit 45 % 42-52 Mean Corpuscular Volume 87 fL 80-94 Mean Corpuscular Hemoglobin 30 pg 27-31 Mean Corpuscular HGB Conc 34 g/dL 31-36 Red Cell Distribution Width 13 % 10.5-15 Platelet Count 176 10^3/uL 150-450 Mean Platelet Volume 8 um3 7.4-10.4 Abs Neutrophils 2.3 10^3/uL 1.5-7.7 Abs Lymphocytes 1.6 10^3/uL 1.0-4.8 Abs Monocytes 0.7 10^3/uL 0-0.8 Abs Eosinophils 0.1 10^3/uL 0-0.6 Abs Basophils 0.1 10^3/uL 0-0.2 Abs Nucleated RBC 0.02 10^3/uL Granulocyte % 48.6 % 38-83 Lymphocyte % 33.6 % 25-47 Monocyte % 13.9 % High 1-9 Eosinophil % 2.8 % 0-6 Basophil % 1.1 % 0-2 Nucleated Red Blood Cells % 0.5 Laboratory test finding 12/07/2016 Erythrocyte Sed Rate 22 mm/Hr High 0- 14 C Reactive Protein 4.42 mg/L < 5.00 9 Laboratory test finding 08/04/2016 Body Fluid Crystals None Seen 10, 11 Body Fluid C&S 08/04/2016 Body Fluid Cult Gram SEE RESULT BELOW 10, 12 Stain Acid Fast Culture & 08/04/2016 Acid Fast Culture SEE RESULT BELOW 10, 13 Smear Smear Laboratory test finding 08/04/2016 Anaerobic Culture SEE RESULT BELOW 10, 14 Body Fluid Cell Count 08/04/2016 Body Fluid Source Synovial Fluid 10 Body Fluid Comment (SEE NOTE) 10, 15 Body Fluid Appearance Cloudy 10 Body Fluid Color Yellow 10 Body Fluid Volume 2 mL 10 Body Fluid WBC 1089 /mcL 10, 16 Body Fluid RBC 4067 /mcL 10 Body Fluid Neutrophils 8 % 10 Body Fluid Lymph 29 % 10 Body Fluid [place] 63 % 10 Body Fluid Other Cells 7 10 Body Fluid NRBC 1 10 Body Fluid Total Cells Counted 100 10 Fluid Reviewed By MD (SEE NOTE) 10, 17 Laboratory test 08/04/2016 Fungal Cult Other SEE RESULT 10, 18 finding Sources BELOW Laboratory test 08/04/2016 Mycobacterial Culture See Comment 10, 19 finding Laboratory test 08/04/2016 C Reactive Protein 5.76 mg/L High < 20 finding 5.00 Laboratory test 07/27/2016 C Reactive Protein 3.72 mg/L < 21 finding 5.00 Comp Metabolic 2016 Sodium 138 mmol/L 133-145 Panel Potassium 4.3 mmol/L 3.5-5.0 Chloride 102 mmol/L 101-111 Co2 Carbon Dioxide 31 mmol/L 22-32 Anion Gap 5 mmol/L 2-11 Glucose 99 mg/dL 70-100 Blood Urea Nitrogen 23 mg/dL 6-24 Creatinine 1.10 mg/dL 0.67-1.17 BUN/Creatinine Ratio 20.9 High 8-20 Calcium 9.4 mg/dL 8.6-10.3 Total Protein 7.5 g/dL 6.4-8.9 Albumin 3.8 g/dL 3.2-5.2 Globulin 3.7 g/dL 2-4 Albumin/Globulin Ratio 1.0 1-3 Total Bilirubin 0.50 mg/dL 0.2-1.0 Alkaline Phosphatase 93 U/L 34-104 Alt 17 U/L 7-52 Ast 29 U/L 13-39 Egfr Non- 72.4 >60 Egfr 93.1 >60 22 Laboratory test finding 2016 C Reactive Protein 5.45 mg/L High < 5.00 23 CBC Auto Diff 2016 White Blood Count 5.2 10^3/uL 3.5-10.8 Red Blood Count 4.96 10^6/uL 4.0-5.4 Hemoglobin 14.2 g/dL 14.0-18.0 Hematocrit 43 % 42-52 Mean Corpuscular Volume 87 fL 80-94 Mean Corpuscular Hemoglobin 29 pg 27-31 Mean Corpuscular HGB Conc 33 g/dL 31-36 Red Cell Distribution Width 14 % 10.5-15 Platelet Count 189 10^3/uL 150-450 Mean Platelet Volume 8 um3 7.4-10.4 Abs Neutrophils 2.3 10^3/uL 1.5-7.7 Abs Lymphocytes 2.1 10^3/uL 1.0-4.8 Abs Monocytes 0.6 10^3/uL 0-0.8 Abs Eosinophils 0.1 10^3/uL 0-0.6 Abs Basophils 0 10^3/uL 0-0.2 Abs Nucleated RBC 0.01 10^3/uL Granulocyte % 45.2 % 38-83 Lymphocyte % 40.0 % 25-47 Monocyte % 11.6 % High 1-9 Eosinophil % 2.3 % 0-6 Basophil % 0.9 % 0-2 Nucleated Red Blood Cells % 0.1 Comp Metabolic Panel 05/25/2016 Sodium 135 mmol/L 133-145 24 Potassium 4.1 mmol/L 3.5-5.0 24 Chloride 99 mmol/L Low 101-111 24 Co2 Carbon Dioxide 30 mmol/L 22-32 24 Anion Gap 6 mmol/L 2-11 24 Glucose 122 mg/dL High 70-100 24 Blood Urea Nitrogen 20 mg/dL 6-24 24 Creatinine 1.12 mg/dL 0.67-1.17 24 BUN/Creatinine Ratio 17.9 8-20 24 Calcium 9.1 mg/dL 8.6-10.3 24 Total Protein 7.1 g/dL 6.4-8.9 24 Albumin 3.5 g/dL 3.2-5.2 24 Globulin 3.6 g/dL 2-4 24 Albumin/Globulin Ratio 1.0 1-3 24 Total Bilirubin 0.40 mg/dL 0.2-1.0 24 Alkaline Phosphatase 78 U/L 34-104 24 Alt 18 U/L 7-52 24 Ast 19 U/L 13-39 24 Egfr Non- 71.2 >60 24 Egfr 91.6 >60 24, 25 Laboratory test 05/25/2016 C Reactive Protein 15.39 mg/L High < 5.00 24, 26 finding CBC Auto Diff 05/25/2016 White Blood Count 4.2 10^3/uL 3.5-10.8 24 Red Blood Count 4.55 10^6/uL 4.0-5.4 24 Hemoglobin 13.1 g/dL Low 14.0-18.0 24 Hematocrit 39 % Low 42-52 24 Mean Corpuscular Volume 86 fL 80-94 24 Mean Corpuscular Hemoglobin 29 pg 27-31 24 Mean Corpuscular HGB Conc 33 g/dL 31-36 24 Red Cell Distribution Width 13 % 10.5-15 24 Platelet Count 235 10^3/uL 150-450 24 Mean Platelet Volume 8 um3 7.4-10.4 24 Abs Neutrophils 2.2 10^3/uL 1.5-7.7 24 Abs Lymphocytes 1.3 10^3/uL 1.0-4.8 24 Abs Monocytes 0.5 10^3/uL 0-0.8 24 Abs Eosinophils 0.2 10^3/uL 0-0.6 24 Abs Basophils 0 10^3/uL 0-0.2 24 Abs Nucleated RBC 0 10^3/uL 24 Granulocyte % 52.1 % 38-83 24 Lymphocyte % 30.9 % 25-47 24 Monocyte % 12.3 % High 1-9 24 Eosinophil % 3.9 % 0-6 24 Basophil % 0.8 % 0-2 24 Nucleated Red Blood Cells % 0.1 24 Laboratory test finding 05/19/2016 C Reactive Protein 34.72 mg/L High &lt ; 5.00 27 Comp Metabolic Panel 05/19/2016 Sodium 137 mmol/L 133-145 Potassium 4.9 mmol/L 3.5-5.0 Chloride 100 mmol/L Low 101-111 Co2 Carbon Dioxide 30 mmol/L 22-32 Anion Gap 7 mmol/L 2-11 Glucose 95 mg/dL 70-100 Blood Urea Nitrogen 16 mg/dL 6-24 Creatinine 0.98 mg/dL 0.67-1.17 BUN/Creatinine Ratio 16.3 8-20 Calcium 9.3 mg/dL 8.6-10.3 Total Protein 7.2 g/dL 6.4-8.9 Albumin 3.4 g/dL 3.2-5.2 Globulin 3.8 g/dL 2-4 Albumin/Globulin Ratio 0.9 Low 1-3 Total Bilirubin 0.40 mg/dL 0.2-1.0 Alkaline Phosphatase 72 U/L 34-104 Alt 18 U/L 7-52 Ast 19 U/L 13-39 Egfr Non- 83.1 >60 Egfr 106.9 >60 28 CBC Auto Diff 05/19/2016 White Blood Count 5.2 10^3/uL 3.5-10.8 Red Blood Count 4.58 10^6/uL 4.0-5.4 Hemoglobin 13.3 g/dL Low 14.0-18.0 Hematocrit 40 % Low 42-52 Mean Corpuscular Volume 86 fL 80-94 Mean Corpuscular Hemoglobin 29 pg 27-31 Mean Corpuscular HGB Conc 34 g/dL 31-36 Red Cell Distribution Width 13 % 10.5-15 Platelet Count 334 10^3/uL 150-450 Mean Platelet Volume 7 um3 Low 7.4-10.4 Abs Neutrophils 2.5 10^3/uL 1.5-7.7 Abs Lymphocytes 1.8 10^3/uL 1.0-4.8 Abs Monocytes 0.7 10^3/uL 0-0.8 Abs Eosinophils 0.1 10^3/uL 0-0.6 Abs Basophils 0 10^3/uL 0-0.2 Abs Nucleated RBC 0 10^3/uL Granulocyte % 48.8 % 38-83 Lymphocyte % 34.2 % 25-47 Monocyte % 14.0 % High 1-9 Eosinophil % 2.1 % 0-6 Basophil % 0.9 % 0-2 Nucleated Red Blood Cells % 0.1 Laboratory test finding 05/02/2016 Anaerobic Culture SEE RESULT BELOW 29 Fungal Cult Other Sources SEE RESULT BELOW 30 Laboratory test finding 05/02/2016 Fungal Cult Other Sources SEE RESULT BELOW 31 Laboratory test finding 05/02/2016 Fungal Cult Other Sources SEE RESULT BELOW 32 Laboratory test finding 05/02/2016 Fungal Cult Other Sources SEE RESULT BELOW 33 Laboratory test finding 05/02/2016 Mycobacterial Culture See Comment 34 Acid Fast Culture & 05/02/2016 Acid Fast Culture Smear SEE RESULT BELOW 35 Smear Body Fluid Cell Count 05/02/2016 Body Fluid Source Synovial Fluid Body Fluid Appearance Cloudy Body Fluid Color Red Body Fluid Volume 50 mL Body Fluid WBC 653555 /mcL 36 Body Fluid RBC 99116 /mcL Body Fluid Neutrophils 97 % Body Fluid Band 1 % Body Fluid Lymph 1 % Body Fluid [place] 1 % Body Fluid Total Cells Counted 100 Fluid Reviewed By MD (SEE NOTE) 37 Laboratory test finding 05/02/2016 Body Fluid Crystals None Seen 38 Body Fluid C&S 05/02/2016 Body Fluid Cult Gram SEE RESULT BELOW 39 Stain Laboratory test finding 04/17/2016 Surgical Pathology SEE RESULT BELOW 40, 41 1 FASTING 10 HOUR Have done within 30 days of surgery ENCOUNTER FOR SCREENING FOR LIPOID DISORDERS FASTING 10 HOUR Have done within 30 days of surgery FASTING 10 HOUR Have done within 30 days of surgery 2 Because ethnic data is not always readily available, this report includes an eGFR for both -Americans and non- Americans. The National Kidney Disease Education Program (NKDEP) does not endorse the use of the MDRD equation for patients that are not between the ages of 18 and 70, are , have extremes of body size, muscle mass, or nutritional status, or are non- or non-. According to the National Kidney Foundation, irrespective of diagnosis, the stage of the disease is based on the level of kidney function: Stage Description GFR(mL/min/1.73 m(2)) 1 Kidney damage with normal or decreased GFR 90 2 Kidney damage with mild decrease in GFR 60-89 3 Moderate decrease in GFR 30-59 4 Severe decrease in GFR 15-29 5 Kidney failure <15 (or dialysis) 3 SEE RESULT BELOW Name: LUIS MANUEL LACY : [address]: Gus Ireland NP Acct: [id number] Unit: [id number] AGE: 46 Location: [facility] Re04/24/17 SEX: M Status: REG REF SPEC: [id number] HEVER: 04/24/[address]: Gus Ireland NP REQ: [id number] RECD: 04/24/17 STATUS: COMP _ SOURCE: URINE SPDESC: ORDERED: Urine Culture COMMENTS: FASTING 10 HOUR Have done within 30 days of surgery Procedure Result Reported Site Urine Culture Final 04/25/17940 ML No Growth (<1,000 CFU/mL) * ML - MAIN LAB ([facility]) . END OF REPORT * ML=Testing performed at Main Lab DEPARTMENT OF PATHOLOGY, [address] [place] [address] Blane Zee M.D. Director [facility] # [id number] 4 Desirable: <150 Borderline High: 150-199 High: 200-499 Very High: >500 5 Desirable: <200 Borderline High: 200-239 High: >239 6 Low: <40 Desirable: 40-60 High: >60 7 Desirable: <100 Near Optimal: 100-129 Borderline High: 130-159 High: 160-189 Very High: >189 8 Acute inflammation: >10.00 9 Acute inflammation: >10.00 10 CALL ABNORMAL RESULTS TO AT [phone] CALL ABNORMAL RESULTS TO AT [phone] What is the body fluid source?: Synovial (Joint) Fluid 12 SEE RESULT BELOW Name: LUIS MANUEL LACY : [address]: Jenifer Betancourt MD Acct: [id number] Unit: [id number] AGE: 46 Location: [facility] Re08/04/16 SEX: M Status: REG REF SPEC: [id number] HEVER: 08/04/16-[address]: Jenifer Betancourt MD REQ: [id number] RECD: 08/04/16 STATUS: COMP _ SOURCE: JOINT FLUI SPDESC: ORDERED: BF Cult/GS, MRSA/SA SSTI COMMENTS: CALL ABNORMAL RESULTS TO AT [phone] Betancourt by [id number] at 2105 on 08/04/16. Results read back accurately. Procedure Result Reported Site Body Fluid Gram Stain Final 08/04/16- 2041 ML 3+ Nucleated Cells 1+ Neutrophils No Organisms Seen Preparation By Cytospin Smear Body Fluid Culture Final 08/08/16- 815 ML No Growth Day 4 MRSA/S. aureus SSTI PCR Final 08/05/16- 842 ML Organism 1 MRSA NEGATIVE Organism 2 S.AUREUS NEGATIVE * ML - [facility] ([facility]) . END OF REPORT * ML=Testing performed at Main Lab DEPARTMENT OF PATHOLOGY, [address] [place] [address] Blane Zee M.D. Director [facility] # [id number] 13 SEE RESULT BELOW Name: LUIS MANUEL LACY : [address]: Jenifer Betancourt MD Acct: [id number] Unit: [id number] AGE: 46 Location: [facility] Re08/04/16 SEX: M Status: REG REF SPEC: [id number] HEVER: 08/04/16-[address]: Jenifer Betancourt MD REQ: [id number] RECD: 08/04/16 STATUS: RES _ SOURCE: BODY FLUID SPDESC: ORDERED: Anaerobic Cult, AFB Cult Smear COMMENTS: CALL ABNORMAL RESULTS TO AT [phone] Procedure Result Reported Site Anaerobic Culture PENDING Acid Fast Stain - Direct Final 08/05/16- 0727 ML AFB Smear Result No Acid Fast Bacillus Present (Negative) Preparation By Cytospin Smear Due to limited sensitivity of the smear, results should be used as an adjunct in evaluating the patient's status and cultural examination is highly recommended for diagnosis. * ML - MAIN LAB ([facility]) . END OF REPORT * ML=Testing performed at Main Lab DEPARTMENT OF PATHOLOGY, [address] [place] [address] Blane Zee M.D. Director [facility] # [id number] 14 SEE RESULT BELOW Name: LUIS MANUEL LACY : [address]: Jenifer Betancourt MD Acct: [id number] Unit: [id number] AGE: 46 Location: [facility] Re08/04/16 SEX: M Status: REG REF SPEC: [id number] HEVER: 08/04/16-[address]: Jenifer Betancourt MD REQ: [id number] RECD: 08/04/16749 STATUS: COMP _ SOURCE: BODY FLUID SPDESC: ORDERED: Anaerobic Cult, AFB Cult Smear COMMENTS: CALL ABNORMAL RESULTS TO AT [phone] Procedure Result Reported Site Anaerobic Culture Final 08/08/16- 814 ML No Growth Day 4 Acid Fast Stain - Direct Final 08/05/16- 726 ML AFB Smear Result No Acid Fast Bacillus Present (Negative) Preparation By Cytospin Smear Due to limited sensitivity of the smear, results should be used as an adjunct in evaluating the patient's status and cultural examination is highly recommended for diagnosis. * ML - MAIN LAB ([facility]) . END OF REPORT * ML=Testing performed at Main Lab DEPARTMENT OF PATHOLOGY, [address] [place] [address] Blane Zee M.D. Director [facility] # [id number] 15 Differential performed on concentrated smear. 16 -- REFERENCE VALUE -- Synovial: <150/mcL Peritoneal: <500/mcL Pleural: <500/mcL Pericardial: <500/mcL 17 Peripheral blood contamination noted. Lymphocytosis and monocytosis, favor reactive. No acute inflammation or microorganisms identified identified. Reviewed by Dr. Zee 18 SEE RESULT BELOW Name: LUIS MANUEL LACY : [address]: Jenifer Betancourt MD Acct: [id number] Unit: [id number] AGE: 46 Location: [facility] Re08/04/16 SEX: M Status: REG REF SPEC: [id number] HEVER: 08/04/16-[address]: Jenifer Betancourt MD REQ: [id number] RECD: 08/04/16 STATUS: COMP _ SOURCE: MISC SOURC SPDESC: ORDERED: Fungal - Other COMMENTS: CALL ABNORMAL RESULTS TO AT [phone] Procedure Result Reported Site Fungal Cult - Other Sources Final 09/04/16- 1138 ML No Growth Week 4 * ML - [facility] ([facility]) . END OF REPORT * ML=Testing performed at Main Lab DEPARTMENT OF PATHOLOGY, [address] [place] [address] Blane Zee M.D. Director [facility] # [id number] 19 SOURCE: SYNOVIAL FLUID, NOT OTHERWISE SPECIFIED, SYNOVIAL FLUID MYCOBACTERIAL CULTURE FINAL No growth after 60 days of incubation. Test Performed by: [place] [address] 20 Acute inflammation: >10.00 21 Acute inflammation: >10.00 22 Because ethnic data is not always readily available, this report includes an eGFR for both -Americans and non- Americans. The National Kidney Disease Education Program (NKDEP) does not endorse the use of the MDRD equation for patients that are not between the ages of 18 and 70, are , have extremes of body size, muscle mass, or nutritional status, or are non- or non-. According to the National Kidney Foundation, irrespective of diagnosis, the stage of the disease is based on the level of kidney function: Stage Description GFR(mL/min/1.73 m(2)) 1 Kidney damage with normal or decreased GFR 90 2 Kidney damage with mild decrease in GFR 60-89 3 Moderate decrease in GFR 30-59 4 Severe decrease in GFR 15-29 5 Kidney failure <15 (or dialysis) 23 Acute inflammation: >10.00 24 [id number] 25 Because ethnic data is not always readily available, this report includes an eGFR for both -Americans and non- Americans. The National Kidney Disease Education Program (NKDEP) does not endorse the use of the MDRD equation for patients that are not between the ages of 18 and 70, are , have extremes of body size, muscle mass, or nutritional status, or are non- or non-. According to the National Kidney Foundation, irrespective of diagnosis, the stage of the disease is based on the level of kidney function: Stage Description GFR(mL/min/1.73 m(2)) 1 Kidney damage with normal or decreased GFR 90 2 Kidney damage with mild decrease in GFR 60-89 3 Moderate decrease in GFR 30-59 4 Severe decrease in GFR 15-29 5 Kidney failure <15 (or dialysis) 26 Acute inflammation: >10.00 27 Acute inflammation: >10.00 28 Because ethnic data is not always readily available, this report includes an eGFR for both -Americans and non- Americans. The National Kidney Disease Education Program (NKDEP) does not endorse the use of the MDRD equation for patients that are not between the ages of 18 and 70, are , have extremes of body size, muscle mass, or nutritional status, or are non- or non-. According to the National Kidney Foundation, irrespective of diagnosis, the stage of the disease is based on the level of kidney function: Stage Description GFR(mL/min/1.73 m(2)) 1 Kidney damage with normal or decreased GFR 90 2 Kidney damage with mild decrease in GFR 60-89 3 Moderate decrease in GFR 30-59 4 Severe decrease in GFR 15-29 5 Kidney failure <15 (or dialysis) 29 SEE RESULT BELOW Name: LUIS MANUEL LACY : [address]: Chip Atkinson MD Acct: [id number] Unit: [id number] AGE: 45 Location: [facility] Re05/02/16 SEX: M Status: REG REF SPEC: [id number] HEVER: 05/02/16-[address]: Chip Atkinson MD REQ: [id number] RECD: 05/02/16-1631 STATUS: COMP _ SOURCE: BODY FLUID SPDESC: ORDERED: Anaerobic Cult, AFB Cult Smear Procedure Result Reported Site Anaerobic Culture Final 05/06/16- 1255 ML Anaerobe Culture No Anaerobes Day 4 Acid Fast Stain - Direct Final 05/03/16- 1328 ML AFB Smear Result No Acid Fast Bacillus Present (Negative) Preparation By Direct Smear Due to limited sensitivity of the smear, results should be used as an adjunct in evaluating the patient's status and cultural examination is highly recommended for diagnosis. * ML - MAIN LAB ([facility]) . END OF REPORT * ML=Testing performed at Main Lab DEPARTMENT OF PATHOLOGY, [address] [place] [address] Blane Zee M.D. Director [facility] # [id number] 30 SEE RESULT BELOW Name: RACHLUIS MANUEL Lois : [address]: Chip Atkinson MD Acct: [id number] Unit: [id number] AGE: 45 Location: [facility] Re05/02/16 SEX: M Status: REG REF SPEC: [id number] HEVER: 05/02/16-[address]: Chip Atkinson MD REQ: [id number] RECD: 05/02/16 STATUS: RES _ SOURCE: MISC SOURC SPDESC: ORDERED: Fungal - Other Procedure Result Reported Site Fungal Cult - Other Sources Preliminary 05/08/16- 1210 ML Fungal Culture No Growth of Mycotic Organisms 1 week * ML - [facility] ([facility]) . END OF REPORT * ML=Testing performed at Main Lab DEPARTMENT OF PATHOLOGY, [address] [place] [address] Blane Zee M.D. Director [facility] # [id number] 31 SEE RESULT BELOW Name: LUIS MANUEL LACY : [address]: Chip Atkinson MD Acct: [id number] Unit: [id number] AGE: 45 Location: [facility] Re05/02/16 SEX: M Status: REG REF SPEC: [id number] HEVER: 05/02/16-[address]: Chip Atkinson MD REQ: [id number] RECD: 05/02/16-1631 STATUS: RES _ SOURCE: MISC SOUR SPDESC: ORDERED: Fungal - Other Procedure Result Reported Site Fungal Cult - Other Sources Preliminary 05/15/16- 1145 ML Fungal Culture No Growth of Mycotic Organisms 2 weeks * ML - MAIN LAB ([facility]) . END OF REPORT * ML=Testing performed at Main Lab DEPARTMENT OF PATHOLOGY, [address] [place] [address] Blane Zee M.D. Director [facility] # [id number] 32 SEE RESULT BELOW Name: LUIS MANUEL LACY : [address]: Chip Atkinson MD Acct: [id number] Unit: [id number] AGE: 45 Location: [facility] Re05/02/16 SEX: M Status: REG REF SPEC: [id number] HEVER: 05/02/16-[address]: Chip Atkinson MD REQ: [id number] RECD: 05/02/16 STATUS: RES _ SOURCE: MISC SOURC SPDESC: ORDERED: Fungal - Other Procedure Result Reported Site Fungal Cult - Other Sources Preliminary 05/22/16- 1104 ML Fungal Culture No Growth of Mycotic Organisms 3 weeks * ML - [facility] ([facility]) . END OF REPORT * ML=Testing performed at Main Lab DEPARTMENT OF PATHOLOGY, [address] [place] [address] Blane Zee M.D. Director [facility] # [id number] 33 SEE RESULT BELOW Name: LUIS MANUEL LACY : [address]: Chip Atkinson MD Acct: [id number] Unit: [id number] AGE: 45 Location: [facility] Re05/02/16 SEX: M Status: REG REF SPEC: [id number] HEVER: 05/02/16-1216 [facility] DR: Chip Atkinson MD REQ: [id number] RECD: 05/02/16 STATUS: COMP _ [facility]: Fungal - Other Procedure Result Reported Site Fungal Cult - Other Sources Final 05/29/16- 1024 ML Fungal Culture No Growth of Mycotic Organisms 4 weeks * ML - MAIN LAB ([facility]) . END OF REPORT * ML=Testing performed at Main Lab DEPARTMENT OF PATHOLOGY, [address] [place] [address] Blane Zee M.D. Director [facility] # [id number] 34 SOURCE: KNEE, KNEE FLUID Mycobacteria specimen plated for culture, volume inadequate for optimal recovery. MYCOBACTERIAL CULTURE FINAL No growth after 60 days of incubation. Test Performed by: [address] [address] 35 SEE RESULT BELOW Name: LUIS MANUEL LACY Lois : [address]: Chip Atkinson MD Acct: [id number] Unit: [id number] AGE: 45 Location: [facility] Re05/02/16 SEX: M Status: REG REF SPEC: [id number] HEVER: 05/02/16-[address]: Chip Atkinson MD REQ: [id number] RECD: 05/02/16 STATUS: RES _ SOURCE: BODY FLUID SPDESC: ORDERED: Anaerobic Cult, AFB Cult Smear Procedure Result Reported Site Anaerobic Culture PENDING Acid Fast Stain - Direct Final 05/03/16- 1328 ML AFB Smear Result No Acid Fast Bacillus Present (Negative) Preparation By Direct Smear Due to limited sensitivity of the smear, results should be used as an adjunct in evaluating the patient's status and cultural examination is highly recommended for diagnosis. * ML - MAIN LAB ([facility]) . END OF REPORT * ML=Testing performed at Main Lab DEPARTMENT OF PATHOLOGY, [address] [place] [address] Blane Zee M.D. Director [facility] # [id number] 36 -- REFERENCE VALUE -- Synovial: <150/mcL Peritoneal: <500/mcL Pleural: <500/mcL Pericardial: <500/mcL 37 Marked acute inflammation present. Recommend correlation with microbiology studies. Minor component of peripheral blood contamination noted. Reviewed by Dr. Zee 38 What is the body fluid source?: Synovial (Joint) Fluid 39 SEE RESULT BELOW Name: LUIS MANUEL LACY Lois : [address]: Chip Atkinson MD Acct: [id number] Unit: [id number] AGE: 45 Location: [facility] Re05/02/16 SEX: M Status: REG REF SPEC: [id number] HEVER: 05/02/16-[address]: Chip Atkinson MD REQ: [id number] RECD: 05/02/16 STATUS: COMP _ SOURCE: JOINT FLUI SPDESC: ORDERED: BF Cult/GS, MRSA/SA SSTI COMMENTS: Verbal to [id number] by [email or web address] at 0008 on 05/03/16. Results read back accurately. Procedure Result Reported Site Body Fluid Gram Stain Final 05/02/16- 1743 ML 4+ Neutrophils No Organisms Seen Preparation By Direct Smear Body Fluid Culture Final 05/07/16- 1022 ML Organism 1 STAPHYLOCOCCUS AUREUS Quantity 2+ 1. STAPHYLOCOCCUS AUREUS M.I.C. RX --------- ------ Penicillin >=0.5 R Clindamycin <=0.25 S Erythromycin <=0.25 S Gentamicin <=0.5 S Linezolid 2 S Nitrofurantoin <=16 S Oxacillin 0.5 S * Quinupristin/Dalfopristin <=0.25 S Rifampin <=0.5 S Tetracycline <=1 S Doxycycline - Deduced S * Minocycline - Deduced S Trimethoprim/Sulfamethoxazole <=10 S CONTINUED ON NEXT PAGE * ML=Testing performed at Main Lab DEPARTMENT OF PATHOLOGY, [address] [place] [address] Blane Zee M.D. Director [facility] # [id number] Patient: LUIS MANUEL LACY [id number] (Continued) Specimen: [id number] Collected: 05/02/16-1216 Received: 05/02/16-1631 (Continued) Procedure Result Reported Site Body Fluid Culture Final (continued) 05/07/16- 1022 1. STAPHYLOCOCCUS AUREUS (continued) M.I.C. RX --------- ------ Vancomycin 1 S Imipenem-Deduced S * Ampicillin/Sulbactam-Deduced S Cefazolin-Deduced S * These antibiotics are not available in the [facility] Formulary Contact the Microbiology Department for any additional antibiotic reporting. MRSA/S. aureus SSTI PCR Final 05/02/16- 3025 ML Organism 1 MRSA NEGATIVE Organism 2 S.AUREUS POSITIVE * ML - MAIN LAB ([facility]) . END OF REPORT * ML=Testing performed at Main Lab DEPARTMENT OF PATHOLOGY, [address] [place] [address] Blane Zee M.D. Director [facility] # [id number] 40 [id number] 41 SEE RESULT BELOW Name: LUIS MANUEL LACY : [address]: Jenifer Betancourt MD Acct: [id number] Unit: [id number] AGE: 45 Location: [facility] Re04/17/16 SEX: M Status: REG SDC SPEC: [id number] HEVER: 04/17/16-1147 [facility] DR: Jenifer Betancourt MD REQ: [id number] RECD: 04/17/164 STATUS: SOUT _ ORDERED: LEVEL III COMMENTS: [id number] FINAL DIAGNOSIS Knee, right, shavings: -- Hyperplastic synovium with fibrosis and neovascularization. Fragments of tendon/ligament tissue with generative features. PRE-OPERATIVE DIAGNOSIS Right knee chondromalacia, medial meniscus tear GROSS DESCRIPTION The specimen is received in formalin labeled, Shavings Right Knee, and consists of a 2.5 x 2.0 x 0.5 cm aggregate of white-pink fibrocartilaginous tissue admixed with yellow lobulated adipose tissue. Welding Supervisor sections submitted in one cassette. Signed (signature on file) Blane Zee MD 1355 END OF REPORT * ML=Testing performed at Main Lab DEPARTMENT OF PATHOLOGY, [address] [place] [address] Blane Zee M.D. Director [facility] # [id number] Procedures Date CPT Code Description Status 04/03/2017 81572 EKG Tracing & Interpretation Completed 02/20/2017 Mammogram Completed 12/14/2016 Inject/Drain Joint/Bursa Major Completed 08/04/2016 Inject/Drain Joint/Bursa Major Completed 05/10/2016 93718 Arthroscopy,Knee For Infection,Lavage & Drainage Completed 05/08/2016 31486 Arthroscopy,Knee For Infection,Lavage & Drainage Completed 05/02/2016 14526 Arthroscopy,Knee For Infection,Lavage & Drainage Completed 05/02/2016 76279 Arthroscopy,Knee For Infection,Lavage & Drainage Completed 04/17/2016 64008 Arthroscopy,Knee,Meniscectomy Media & Lateral Completed 04/17/2016 67316 Arthroscopy,Knee,Meniscectomy Media & Lateral Completed 04/06/2015 46740 Inject/Drain Joint/Bursa Major Completed 01/14/2015 85977 Arthroscopy,Knee,Meniscectomy Media & Lateral Completed 01/14/2015 30877 Arthroscopy,Knee,Meniscectomy Media & Lateral Completed Encounters Type Date Location Provider CPT E/M Dx Office Visit 04/03/2017 8:40a [facility] [place] [address] Z01.818 Darius M25.561 N64.9 Z13.220 Office Visit 03/27/2017 9:45a [facility], 51929 N62 [facility] Office Visit 02/12/2017 10:00a [facility], 64454 N62 [facility] Office Visit 02/02/2017 8:30a [facility] M.D. 89451 M00.061 [facility] M25.561 M25.461 M17.31 Office Visit 01/30/2017 8:15a [facility] [place] [address] M17.11 [facility] M17.31 Office Visit 01/23/2017 10:45a [facility] [place] [address] M17.11 [facility] M17.31 Office Visit 12/28/2016 2:15p [facility] [place] [address] M17.11 [facility] Office Visit 12/07/2016 1:00p [facility] [place] [address] M00.061 [facility] M17.11 N64.9 Office Visit 10/19/2016 2:20p [facility] Medicine Bhupinder Zarate, 04005 N64.9 Peyman Sanchez M.D. Office Visit 10/12/2016 8:45a [facility] [place] [address] M00.061 [facility] M17.11 N64.9 R22.2 Office Visit 09/11/2016 8:00a [facility] M.D. 17389 M25.561 [facility] M25.461 T81.4xxD M17.11 Office Visit 08/22/2016 2:45p [facility] [place] [address] M17.11 [facility] S83.241D M00.061 Office Visit 08/04/2016 9:10a [facility] Noreen Milner 62128 M25.561 Infectious Mitra Kim M.D. Office Visit 06/08/2016 2:20p [facility] Noreen Milner 72749 M00.061 Diaz Kim M.D. M25.561 Z79.2 Office Visit 05/23/2016 1:00p [facility] [place] [address] M75.42 [facility] M00.061 S83.241D Office Visit 05/23/2016 11:30a [facility] Kelsea Milner 02503 M00.061 Infectious Mitra Kim M.D. T81.4xxD M25.512 Office Visit 05/11/2016 12:58p [facility] Kelsea Milner 83965 M00.061 Infectious Mitra Kim M.D. M25.561 T81.4xxD M25.461 E11.9 R79.82 Office Visit 05/10/2016 12:45p [facility] Kelsea Milner 15424 M00.061 Infectious Mitra Kim M.D. M25.561 T81.4xxD M25.461 E11.9 R79.82 Office Visit 05/09/2016 12:05p [facility] Kelsea Milner 14749 M00.061 Diaz Kim M.D. M25.561 T81.4xxD M25.461 E11.9 R79.82 Office Visit 05/04/2016 8:59a [facility] Noreen Milner 32383 M00.061 Infectious Diseases Mart Kim E11.9 T81.4xxD E66.9 Office Visit 05/03/2016 8:52a [facility] Yadiel Milner 85880 M00.061 Infectious Diseases Mart Kim T81.4xxD Office Visit 03/30/2016 11:30a [facility] [place] [address] M94.261 [facility] S83.241D Office Visit 03/21/2016 1:45p [facility] [place] [address] M94.261 [facility] S83.281A M25.461 Office Visit 12/14/2014 8:30a [facility] [place] [address] S83.231A Of [facility] Office Visit 08/30/2012 9:00a [facility] Yanni Richardson, 73797 784.0 Services Of Danni Cevallos 368.2 Plan of Care Future Appointment(s):05/18/2017 1:45 pm - [facility] Acevedo M.D. at [facility]05/03/2017 1:30 pm - Irasema Acevedo M.D. at [facility]04/27/2017 - Irasema Acevedo M.D.M25.561 Pain in right kneeFollow up:Follow up: 2 weeks after qijmssyO62.31 Unilateral post- traumatic osteoarthritis, right kneeM25.461 Effusion, right knee
[2017-05-03] MEDS ORDERED: Metoclopramide TAB* 10 MG ONE (09:41)
[2017-05-03] MEDS ORDERED: Gabapentin CAP(*) 300 MG ONE (09:41)
[2017-05-03] MEDS ORDERED: ceFAZolin 1 GM in Dextrose (*) 1 GM/50 ML BAG IVPB ONE (09:41)
[2017-05-03] MEDS ORDERED: Ketorolac INJ* 30 MG/ML 1 ML VIAL ONE (09:41)
[2017-05-03] MEDS ORDERED: ceFAZolin 2 GM (*##) 2 GM/100 ML BAG USE CEFA2SOL IVPB ONE (09:41)
[2017-05-03] MEDS ORDERED: Famotidine IV* 10 MG/ML 2 ML (20 mg) ONE (09:41)
[2017-05-03] MEDS ORDERED: Acetaminophen IV 1GM/100ML * 100 ML ONE (09:46)
[2017-05-03] MEDS ORDERED: Propofol* 10 MG/ML 20 ML BTL IV PUSH ONE (10:32)
[2017-05-03] MEDS ORDERED: fentaNYL* 50 MCG/ML 2 ML VIAL (100 MCG VIAL) ONE ×4 (10:32→15:42)
[2017-05-03] MEDS ORDERED: Lidocaine 2% PF * 5 ML VIAL ONE (10:32)
[2017-05-03] MEDS ORDERED: ROPIVACAINE 5 MG/ML 30 ML BTL (0.5%) ONE (10:32)
[2017-05-03] MEDS ORDERED: Ondansetron INJ* 2 MG/ML VIAL ONE (10:32)
[2017-05-03] MEDS ORDERED: Midazolam* 1 MG/ML 10 ML VIAL (10 MG) ONE (10:32)
[2017-05-03] MEDS ORDERED: KETAMINE HCL* 50 MG/ML 10 ML VIAL ONE (10:32)
[2017-05-03] MEDS ORDERED: Dexamethasone IV* 4 MG/ML 1 ML (4 MG) ONE (10:32)
[2017-05-03] MEDS ORDERED: Bupivacaine 0.5% SDV PF* 10-30ML VIAL ONE (11:17)
[2017-05-03] MEDS ORDERED: EPHEDrine (Pressors)* 50 MG/ML VIAL ONE (12:19)
[2017-05-03] MEDS ORDERED: Ondansetron INJ* 2 MG/ML VIAL IV PRN ×2 (13:48→15:23)
[2017-05-03] MEDS ORDERED: Magnesium Hydroxide LIQ* 30 ML UDC PO PRN (13:48)
[2017-05-03] MEDS ORDERED: Bisacodyl SUPP* 10 MG SUPP PR PRN (13:48)
[2017-05-03] MEDS ORDERED: oxyCODONE/Acetamin 5/325 MG* TAB PO PRN ×2 (13:48)
[2017-05-03] MEDS ORDERED: diPHENhydraMINE IV* 50 MG/ML 1 ml VIAL (BENADRYL) IV PRN (13:48)
[2017-05-03] MEDS ORDERED: HYDROmorphone INJ* 1 MG/ML CARPUJECT SYRINGE ONE (14:09)
[2017-05-03] MEDS ORDERED: HYDROmorphone INJ* 1 MG/ML CARPUJECT SYRINGE IV PRN (15:23)
[2017-05-03] MEDS ORDERED: Naloxone* 0.4 MG/ML 1 ML VIAL IV PRN (15:23)
[2017-05-03] MEDS: fentaNYL* 50 MCG/ML 2 ML VIAL (100 MCG VIAL) IV PRN ×3 (15:36→16:12)
[2017-05-03] MEDS ORDERED: HYDROmorphone INJ* 2 MG/ML CARPUJECT SYRINGE ONE (15:42)
--- NOTE | 2017-05-03 16:08 | RAD ---
INDICATION: Right total knee replacement COMPARISON: March 24, 2016 TECHNIQUE: AP and lateral views were obtained. FINDINGS: There is right knee arthroplasty. Both femoral and tibial components appear well seated. There is a surgical drain in place. IMPRESSION: POSTOPERATIVE RIGHT TOTAL KNEE.
[2017-05-03] MEDS: Cyclobenzaprine TAB* 10 MG PO PRN (16:32)
[2017-05-03] MEDS ORDERED: Warfarin TAB(*) 6 MG PO ONE (17:00)
[2017-05-03] MEDS ORDERED: Morphine INJ* 2 MG/ML 1 ML CARPUJECT ONE (17:35)
[2017-05-03] MEDS: Morphine INJ* 2 MG/ML 1 ML CARPUJECT IV PRN (17:37)
[2017-05-03] MEDS ORDERED: Acetaminophen TAB* 325 MG PO PRN (18:00)
[2017-05-03] MEDS: oxyCODONE TAB* 5 MG TAB PO PRN ×2 (19:04→22:42)
[2017-05-03] MEDS: ceFAZolin 1 GM in Dextrose (*) 1 GM/50 ML BAG IVPB SCH (19:39)
[2017-05-03] MEDS: Magnesium Hydroxide LIQ* 30 ML UDC PO SCH (22:42)
[2017-05-03] MEDS: Docusate CAP* 100 MG PO SCH (22:42)
[2017-05-04] MEDS: oxyCODONE TAB* 5 MG TAB PO PRN ×5 (02:45→20:43)
[2017-05-04] MEDS: ceFAZolin 1 GM in Dextrose (*) 1 GM/50 ML BAG IVPB SCH ×2 (03:37→12:24)
[2017-05-04 06:01] LABS: Hematocrit 37 % (42-52); Hemoglobin 12.7 g/dl (14.0-18.0); Mean Platelet Volume 8 um3 (7.4-10.4); Platelet Count 176 10^3/ul (150-450)
[2017-05-04 06:08] LABS: INR 1.21 (0.77-1.02)
[2017-05-04 06:15] LABS: EGFR Non-African American 90.1 (>60)
[2017-05-04] MEDS: Vitamin THERAPEUTIC TAB PO SCH (09:34)
[2017-05-04] MEDS: Magnesium Hydroxide LIQ* 30 ML UDC PO SCH ×2 (09:34→20:43)
[2017-05-04] MEDS: Docusate CAP* 100 MG PO SCH ×2 (09:34→20:43)
[2017-05-04] MEDS: Enoxaparin(*) 30 MG/0.3 ML SYR SUBCUT SCH (09:35)
--- NOTE | 2017-05-04 14:41 | PN ---
Progress Note - Progress Note Date of Service: 05/04/17 SOAP: Subjective: Patient is 46 yo male POD 1 s/p right TKA by Dr. Acevedo. Patient reports some continued pain, he just had pain medication. Drain was pulled by Dr. Acevedo this morning. Denies any CP, SOB, chills, dizziness, N/V. Objective: Vital Signs Temp 98.2 F 05/04/17 11:27 Pulse 83 05/04/17 11:27 Resp 16 05/04/17 12:24 BP 128/61 05/04/17 11:27 Pulse Ox 97 05/04/17 11:27 Intake & Output 05/03/17 05/04/17 05/04/17 18:59 06:59 18:59 Intake Total 2150 1500 2158 Output Total 150 1550 1700 Balance 1999 -50 458 Weight 335 lb 12.8 oz Intake: IV Fluids 2100 1485 LR 2100 1485 IVPB 173 ABX - CEFAZOLIN 173 Oral 50 1500 500 Output: Urine 0 1700 Iverson 150 1550 Laboratory Results - last 24 hr 05/04/17 05/04/17 05/04/17 05:18 05:18 05:18 Hgb 12.7 L Hct 37 L Plt Count 176 MPV 8 INR (Anticoag Therapy) 1.21 H Sodium 134 Potassium 4.5 Chloride 100 L Carbon Dioxide 29 Anion Gap 5 BUN 18 Creatinine 0.91 Est GFR ( Amer) 115.9 Est GFR (Non-Af Amer) 90.1 BUN/Creatinine Ratio 19.8 Glucose 150 H Calcium 8.7 General: WN, WD, laying comfortably in bed. NAD. A&Ox3. Normal mood and affect. RLE: Dressing C/D/I. Able to DF/PF ankle and move toes. 2+ DP pulses capillary refill brisk. Sensation intact distally. Calf soft and non-tender. Thigh soft, some pain proximal to dressing, no erythema or swelling, no palpable cords. Assessment: 46 male POD 1 s/p right TKA with Dr. Acevedo, stable. Plan: 1. WBAT 2. PT/OT 3. Lovenox to Coumadin bridge, plan 8 mg tonight. 4. Plan to discharge tomorrow if doing well with PT.
[2017-05-04] MEDS: Cyclobenzaprine TAB* 10 MG PO PRN (14:54)
--- NOTE | 2017-05-04 14:56 | OP ---
OPERATIVE REPORT: DATE OF OPERATION: 05/03/17 DATE OF : 72 SURGEON: Irasema Acevedo MD. SAWMILL WORKER: GARO Gutierres. Ms. Ochoa did help throughout the procedure with preparation of the leg, wound retraction, manipul ation of the knee and wound closure. ANESTHESIOLOGIST: Dr. Del Cid. ANESTHESIA: General with adductor nerve block. PRE-OP DIAGNOSIS: Severe endstage osteoarthritis of the right knee joint, status post [place] knee in fection. POST-OP DIAGNOSIS: Severe endstage osteoarthritis of the right knee joint, status post [place] knee i nfection. OPERATIVE PROCEDURE: Right total knee arthroplasty. TOURNIQUET TIME: 62 minutes. COMPLICATIONS: None. SPECIMENS: Bone and cartilage from the right knee joint sent to Pathology. Multiple culture swabs se nt to Microbiology. Frozen section set of right knee joint capsule soft tissue to Pathology for froz en section at the beginning of the case. Formal result called from Pathology was no active acute inf lammation and 0 neutrophils per high-power field. HARDWARE USED: This is cemented [employer] total knee arthroplasty hardware. Two packages of S implex with tobramycin were used. For the femur, a size 8 right, posterior stabilized, Oxinium Legio n femoral component. For the tibia, a size 7 right, Neelam II tibial base plate. For the insert, a 9-mm posterior stabilized articular insert, size 7/8. For the patella, 38 mm 3-peg all poly patella . BRIEF HISTORY/INDICATION: Mr. Lacy is a 46-year-old gentleman who underwent arthroscopy over 1 yea r ago for meniscal tear and arthritis. Unfortunately, the patient went on to have an infection of th e right knee joint with Staph aureus, which was not MRSA. The patient had several arthroscopic washo uts. He was followed by Dr. Dumont of Infectious Diseases. He did clear the infection based on kn ee aspiration and blood lab values. Patient went on to have chronic pain and advancement on radiogra phs of his osteoarthritis. Patient saw me in consultation. Due to continued chronic pain and decreas ed quality of life, he wished to proceed with right total knee arthroplasty. Informed consent was ob tained from the patient. He understood the risk of the surgery included but were not limited to blee ding, infection, damage to nearby structures, continued pain, need for further surgery, intraoperativ e fracture, nerve palsy, hardware failure or loosening, knee stiffness, loss of motion, stroke, heart attack, blood clot, and . He wished to proceed. He understood he did have an increased risk o f an infection due to his history. INTRAOPERATIVE FINDINGS: Intraoperatively, the patient was noted to have endstage arthritis with com plete loss of cartilage in the medial and patellofemoral compartments. He has no obvious purulence. The knee joint was stiff and contracted. At the beginning of the case, frozen section with soft tis pete from the knee joint capsule was sent to pathology. Frozen section showed 0 neutrophils per high- power field and no evidence of acute inflammation. Decision was then made to continue with the total knee arthroplasty. DESCRIPTION OF PROCEDURE: Mr. Lacy was identified in the preanesthesia unit. His right lower extre mity was marked as the correct operative side. Informed consent was signed and placed in the chart. The patient was taken to the operating room. He had an adductor nerve block placed with general ane sthesia. A Iverson catheter was placed. Tourniquet was placed on the right thigh. Right lower extrem ity was prepped and draped in the usual sterile fashion. Preop time-out was made to correctly identi fy the patient, side and site. Appropriate perioperative antibiotics were given within one hour of i ncision. Tourniquet was not inflated. A midline incision was made with a 10-blade and carried down to the ext ensor mechanism. A new 10-blade was used to make a standard medial parapatellar arthrotomy. Multipl e culture swabs were obtained and sent to Pathology. There was no visible purulence or infection. S ome soft tissues on the right knee joint capsule was collected and sent to Pathology for frozen secti ons. Essentially the surgery was put on hold at this point. Pathology did call with a report of no a cute active inflammation. Decision was made to progress with surgery. Tourniquet was inflated at th is point and total tourniquet time was 62 minutes. Electrocautery was used to subperiosteally elevate soft tissue off the superomedial tibia in the mid sagittal plane. The knee was noted to be stiff and contracted. The knee was flexed up. The anterior horn of the lateral meniscus and ACL were sharply released. A drill was used to enter the distal fe mur. Intramedullary distal femoral cutting guide was pinned on the distal femur. Oscillating saw wa s used to make the distal femoral cut. The external rotation guide was pinned on the distal femur. The distal femur was sized to a size 8. Size 8 multi-cutting jig was pinned on the distal femur. Os cillating saw was used to make the appropriate chamfer cuts. The PCL was completely released. The tibia was subluxed anteriorly. Extramedullary tibial cutting gu rivas was pinned on the proximal tibia. Oscillating saw was used to the make the proximal tibial cut p erpendicular to the mechanical axis of the tibia. The bone was carefully removed. The knee was brou ght out into full extension. A spacer block had a good fit with appropriate medial and lateral ligam entous balancing. Flexion and extension gaps were well balanced. The knee was flexed up. Lamina sp reader was placed both medially and laterally. Any remaining meniscus was removed using electrocaute ry. Curved osteotome was used to remove posterior osteophytes. A size 8 right femoral trial was impacted on to the distal femur. The femoral trial had excellent fi t. The box for the posterior stabilized implant was prepared using a reamer and box cut osteotome. A size 7 tibial tray trial with a 9-mm insert trial was placed, and the knee was taken through a rang e of motion. The knee had full extension to 130 degrees of flexion. There was satisfactory patellof emoral tracking. The patella was everted. 9 mm of patellar bone and cartilage was carefully removed from the patella. The patella was sized to a size 38. Three pegs were drilled through the size 38 guide. Trial 38 p atella was placed and the knee was taken through a range of motion. Patellofemoral tracking was sati sfactory. All trials were carefully removed. The tibia was subluxed anteriorly and sized to a size 7. Proximal tibia was prepared using a size 7 keel punch. All bony cut surfaces were copiously irrig ated with sterile saline and dried. Final implants were cemented into place starting with the tibia followed by the femur and last the patella. A 9- mm insert trial was placed while the knee was broug ht out into full extension. Tourniquet was turned down at 62 minutes. The knee was copiously irrigat ed with sterile saline. Electrocautery was used to obtain meticulous hemostasis. Once the cement had fully cured, the insert trial was removed. Any excess cement was removed from ar ound the capsule and implant. Final insert chosen was a 9-mm posterior stabilized articular insert, size 7/8. This was locked into position on the tibial tray without difficulty. Stability of the ins ert was checked and rechecked and noted to be stable. The extensor mechanism was closed over a mediu m Hemovac drain using interrupted #1 Vicryls. The rest of the incision was closed in a layered fashi on using 0 and 2-0 Vicryls. The skin was closed using running 3-0 nylon suture. Sterile Xeroform, 4 x4s, and Webril were used to cover the incision. Ed wrap and cold pack were placed over this. The patient's anesthesia was reversed without difficulty. He was taken to the PACU in stable conditi on. Intended weightbearing will be weightbearing as tolerated. Intended DVT prophylaxis will be Coum marcus with a Lovenox bridge. [id number]/[facility] #: [id number]
[2017-05-04] MEDS ORDERED: Ibuprofen TAB* 400 MG PO PRN (16:50)
[2017-05-04] MEDS ORDERED: Warfarin TAB(*) 4 MG PO ONE (17:00)
[2017-05-04] MEDS: Morphine INJ* 2 MG/ML 1 ML CARPUJECT IV PRN (19:08)
[2017-05-05] MEDS: oxyCODONE TAB* 5 MG TAB PO PRN ×4 (00:57→14:15)
[2017-05-05 05:45] LABS: Hematocrit 36 % (42-52); Mean Platelet Volume 7 um3 (7.4-10.4); Platelet Count 161 10^3/ul (150-450)
[2017-05-05 05:56] LABS: INR 1.32 (0.77-1.02)
[2017-05-05] MEDS: Vitamin THERAPEUTIC TAB PO SCH (08:15)
[2017-05-05] MEDS: Enoxaparin(*) 30 MG/0.3 ML SYR SUBCUT SCH (08:15)
[2017-05-05] MEDS: Docusate CAP* 100 MG PO SCH (08:15)
[2017-05-05] MEDS: Magnesium Hydroxide LIQ* 30 ML UDC PO SCH (08:15)
--- NOTE | 2017-05-05 09:18 | PN ---
Progress Note - Progress Note Date of Service: 05/05/17 SOAP: Subjective: POD #2 Right TKA, doing ok. Mild increase in pain as nerve block has worn off. Denies CP/SOB, calf pain, f/c. Ok for d/c home today. Objective: Vitals: Temp Pulse Resp BP Pulse Ox 97.9 F 87 18 145/75 92 /05/20 07:25 05/05/17 07:25 05/05/17 07:21 05/05/17 07:25 05/05/17 07:25 Gen: A&Ox3, NAD at rest RLE: Incision C/I, small area of s/s drainage to mid part of wound. + edema and ecchymosis to knee. +f/e at ankle and MTPs. N/V intact. Labs: Laboratory Results - last 24 hr 05/05/18 05/05/17 05:27 05:27 Hgb 12.0 L Hct 36 L Plt Count 161 MPV 7 L INR (Anticoag Therapy) 1.32 H Assessment: POD #2 Right TKA Plan: D/C home today Coumadin 10 mg 3/3 and 3/4 F/u with Dr. Acevedo 10-14 days
[2017-05-05 16:13] VITALS: BP 140/80
--- NOTE | 2017-05-06 05:27 | DS ---
AMENDED REPORT NOW INCLUDES COSIGNER DESIGNATION - ESIGNED BEFORE ADJUSTMENT DISCHARGE SUMMARY: DATE OF ADMISSION: 05/03/17 DATE OF DISCHARGE: 05/05/17 PROVIDER: Irasema Acevedo MD * (DICTATED BY GARO ZARCO) ADMITTING DIAGNOSIS: Severe end-stage osteoarthritis of the right knee. DISCHARGE DIAGNOSIS: Severe end-stage osteoarthritis of the right knee, status post right total knee arthroplasty. SECONDARY DIAGNOSIS: Chronic pain syndrome. HISTORY OF PRESENT ILLNESS: Mr. Lacy is a 46-year-old gentleman, who has had significant right knee pain. He has failed conservative management and elected to proceed with right total knee arthroplasty. HOSPITAL COURSE: On 05/03/17, the patient was admitted to [facility] and underwent successful right total knee arthroplasty by Dr. Acevedo. He recovered briefly in the postanesthesia care unit and was transferred to the short stay surgical unit in stable condition. On postop day 1, his pain was well controlled with the pre-surgical nerve block as well as oral pain medication. He was able to participate with physical therapy and ambulate a short distance with use of a rolling walker. His H and H was 12.7 and 37. INR 1.21 with 6 mg of Coumadin previously. On postop day 1, his Iverson catheter and Hemovac drain were removed without any complications. On postop day 2, the patient stated that he had slight increase in pain as the nerve block wore off but that continues to be controlled with oral pain medication. He was able to participate with physical therapy. His dressing was changed. He had a small area of serosanguineous drainage from the mid portion; however, there were no signs or symptoms of infection. His H and H was stable at 12.0 And 36. INR 1.32 with 8 mg of Coumadin previously. He was found stable for discharge home. DISCHARGE INSTRUCTIONS: The patient is understanding that he is weightbearing as tolerated with the use of a rolling walker. He will continue using the Cryo/ Cuff and elevate his leg frequently as needed for pain. He will participate with home physical therapy and do his exercises. He will have visiting nurse service for wound care and INR check. He is understanding to keep his incision clean and dry until postop day 4. He may shower normally at that time as long as there is no further drainage. He is understanding not to submerge his incision in bath tub, hot tub, or swimming pool. He will call the office with any problems or concerns. He will go directly to the emergency room with any chest pain, shortness of breath, fever greater than 101.5, calf pain or swelling. DISCHARGE MEDICATIONS: The patient will have: 1. Percocet 5/325 one to two tabs p.o. q.4 to 6 hours p.r.n. pain. 2. Colace 100 mg p.o. b.i.d. p.r.n. constipation. 3. Coumadin 2 mg as directed by the doctor through visiting nurse. He will take 8 mg on 05/05/17. He will take 8 mg on 05/06/17. He will have a redraw of his INR on 05/07/17. 4. Keflex 500 mg p.o. four times a day for 7 days. He will discontinue his home medication of Nucynta as he will use the Percocet for postoperative pain. He will follow up in the office 10 to [address] Acevedo. All of his questions were answered to his full satisfaction. GARO ZARCO [id number]/[facility] #: [id number] KADEN
== END 2017-05-05 16:10 | disposition home health service (06) | DRG 302 ==
LOC: AA 09:35 → SSU 13:48
PROVIDERS: ADMIT Orthopaedic Surgery Adult Reconstructive Orthopaedic Surgery; ATTEND Orthopaedic Surgery Adult Reconstructive Orthopaedic Surgery
PROC: 0SRC069 Replacement of Right Knee Joint with Oxidized Zirconium on Polyethylene Synthetic Substitute, Cemented, Open Approach (ICD-10-PCS; principal; 2017-05-03 12:00)
DX: M17.31 Unilateral post-traumatic osteoarthritis, right knee (principal); G89.4 Chronic pain syndrome; X58.XXXS Exposure to other specified factors, sequela; M25.761 Osteophyte, right knee; Z72.89 Other problems related to lifestyle; T14.90XS Injury, unspecified, sequela; Z82.49 Family history of ischemic heart disease and other diseases of the circulatory system
CPT/HCPCS: 36415; 80048; 85014; 85018; 85049; 85610; 87070; 87073; 87205; 88305; 88311; 88331; A9270-GY; C1776; J0690; J1100; J1170; J1650; J1885; J2250; J2270; J2405; J2704; J2795; J3010

== ENCOUNTER 2020-06-27 14:10 | Inpatient (IN) ==
[2020-06-27 15:28] LABS: ABS Lymphocytes 0.6 10^3/ul (1.0-4.8); ABS Monocytes 0.3 10^3/ul (0-0.8); ABS Neutrophils 3.9 10^3/ul (1.5-7.7); Eosinophil % 0.1 %; Hematocrit 46 % (42-52); Hemoglobin 15.7 g/dL (14.0-18.0); Lymphocyte % 12.4 %; Mean Corpuscular HGB Conc 34 g/dL (31-36); Mean Corpuscular Hemoglobin 30 pg (27-31); Mean Corpuscular Volume 87 fL (80-94); Mean Platelet Volume 7.6 fL (7.4-10.4); Nucleated Red Blood Cells % 0.1; Platelet Count 180 10^3/uL (150-450); Red Blood Count 5.28 10^6 /uL (4.18-5.48); Red Cell Distribution Width 13 % (10-15); White Blood Count 4.9 10^3/uL (3.5-10.8)
[2020-06-27 15:37] LABS: Activated Partial Thrombo Time 30.7 seconds (26.0-38.0); INR 1.4 (0.82-1.09)
[2020-06-27 15:43] LABS: Influenza A Molecular Negative (Negative); Influenza B Molecular Negative (Negative)
[2020-06-27 15:46] LABS: ALT 49 U/L (7-52); AST 82 U/L (13-39); Albumin 3.7 g/dL (3.2-5.2); Albumin/Globulin Ratio 0.9 (1-3); Alkaline Phosphatase 57 U/L (34-104); Anion Gap 10 mmol/L (2-11); Blood Urea Nitrogen 17 mg/dL (6-24); C Reactive Protein 142.17 mg/L (<8.01); CO2 Carbon Dioxide 28 mmol/L (22-32); Calcium 8.9 mg/dL (8.6-10.3); Chloride 96 mmol/L (101-111); EGFR Non-African American 66.9 (>60); Glucose 153 mg/dL (70-100); Potassium 4.2 mmol/L (3.5-5.0); Sodium 134 mmol/L (135-145); Total Protein 7.7 g/dL (6.4-8.9)
[2020-06-27 17:06] LABS: LDH 577 U/L (140-271)
[2020-06-27 17:29] LABS: Ferritin > 1500.0 ng/mL (24-336)
[2020-06-27] MEDS ORDERED: Lactated Ringers 1000 ml BAG 1,000 ML IV ONE (17:58)
[2020-06-27] MEDS ORDERED: Azithromycin 500 mg/250 ml NS 500 MG/250 ML BAG IVPB ONE ×2 (18:33→20:30)
[2020-06-27] MEDS ORDERED: Remdesivir 100 mg Vial 200 MG in NS 0.9% 250 ml 210 ML IV ONE (18:45)
[2020-06-27] MEDS: Enoxaparin 30 MG/0.3 ML SYR SUBCUT SCH (21:23)
[2020-06-27] MEDS: cefTRIAXone 1 gm/50 mL NS BAG 1 GM/50 ML BAG IVPB SCH (21:48)
[2020-06-28 04:56] LABS: Urine Appearance Clear; Urine Color Yellow
[2020-06-28 04:59] LABS: Urine Ketones Negative (Negative); Urine Protein 1+(30 mg/dL) (Negative); Urine Specific Gravity 1.035 (1.002-1.030); Urine Urobilinogen Negative (Negative)
[2020-06-28 05:00] LABS: Urine Bilirubin 1+ (Negative); Urine Blood Negative (Negative); Urine Glucose Negative (Negative); Urine Nitrite Negative (Negative)
[2020-06-28 05:17] LABS: Urine Bacteria Absent (Absent); Urine Red Blood Cell Absent (Absent); Urine Squamous Epithelial Cell Present (Absent); Urine White Blood Cell Trace(0-5/hpf) (Absent)
[2020-06-28 06:15] LABS: Hematocrit 45 % (42-52); Hemoglobin 15.1 g/dL (14.0-18.0); Mean Corpuscular HGB Conc 34 g/dL (31-36); Mean Corpuscular Hemoglobin 30 pg (27-31); Mean Corpuscular Volume 88 fL (80-94); Mean Platelet Volume 7.8 fL (7.4-10.4); Platelet Count 170 10^3/uL (150-450); Red Blood Count 5.08 10^6 /uL (4.18-5.48); Red Cell Distribution Width 13 % (10-15)
[2020-06-28 06:28] LABS: Calcium 8.4 mg/dL (8.6-10.3)
[2020-06-28 06:34] LABS: EGFR African American 115.9 (>60); EGFR Non-African American 95.8 (>60)
[2020-06-28] MEDS: Enoxaparin 30 MG/0.3 ML SYR SUBCUT SCH (06:34)
[2020-06-28] MEDS ORDERED: Dexamethasone IV 4 MG/ML VIAL 1 ml VIAL IV SLOW PU SCH (09:00)
[2020-06-28] MEDS ORDERED: Furosemide 20 mg/2 ml IV VIAL IV ONE (09:00)
[2020-06-28] MEDS ORDERED: Furosemide 20 mg/2 ml IV VIAL ONE (09:09)
[2020-06-28] MEDS ORDERED: Tocilizumab 200 MG/10 ML 10 ml VIAL IVPB ONE (09:31)
[2020-06-28] MEDS ORDERED: Tocilizumab 800 MG in NS 0.9% 100 ml BAG 60 ML IVPB ONE (10:00)
[2020-06-28] MEDS: Dexamethasone IV 4 MG/ML VIAL 1 ml VIAL IV SLOW PU SCH ×2 (14:54→23:03)
[2020-06-28] MEDS ORDERED: Perflutren Lipid Microsphere 3 ML VIAL ONE (15:16)
[2020-06-28] MEDS: Enoxaparin 80 MG/0.8 ML SYR SUBCUT SCH (17:32)
[2020-06-28] MEDS: cefTRIAXone 1 gm/50 mL NS BAG 1 GM/50 ML BAG IVPB SCH (20:00)
[2020-06-28] MEDS: Remdesivir 100 mg Vial 100 MG in NS 0.9% 250 ml 230 ML IV SCH (22:30)
[2020-06-29] MEDS: Enoxaparin 80 MG/0.8 ML SYR SUBCUT SCH ×2 (05:42→17:05)
[2020-06-29] MEDS: Dexamethasone IV 4 MG/ML VIAL 1 ml VIAL IV SLOW PU SCH ×3 (05:43→21:50)
[2020-06-29] MEDS ORDERED: Furosemide 40 mg/4 ml IV VIAL IV ONE (06:06)
[2020-06-29 06:15] LABS: Albumin 3.3 g/dL (3.2-5.2); Albumin/Globulin Ratio 0.9 (1-3); Calcium 8.7 mg/dL (8.6-10.3); EGFR Non-African American 78.5 (>60); Globulin 3.6 g/dL (2-4); Magnesium 2.5 mg/dL (1.9-2.7); Phosphorus 3.9 mg/dL (2.5-5.0); Potassium 4.2 mmol/L (3.5-5.0); Total Bilirubin 0.7 mg/dL (0.2-1.0); Total Protein 6.9 g/dL (6.4-8.9)
[2020-06-29 08:30] LABS: Hematocrit 44 % (42-52); Hemoglobin 14.8 g/dL (14.0-18.0); Mean Corpuscular HGB Conc 34 g/dL (31-36); Mean Corpuscular Hemoglobin 30 pg (27-31); Mean Corpuscular Volume 88 fL (80-94); Mean Platelet Volume 7.9 fL (7.4-10.4); Platelet Count 227 10^3/uL (150-450); Red Blood Count 5.01 10^6 /uL (4.18-5.48); Red Cell Distribution Width 13 % (10-15); White Blood Count 7.4 10^3/uL (3.5-10.8)
[2020-06-29] MEDS: cefTRIAXone 1 gm/50 mL NS BAG 1 GM/50 ML BAG IVPB SCH (20:05)
[2020-06-29] MEDS: Famotidine IV 10 MG/ML 2 ml VIAL (20 mg) IV SLOW PU SCH (21:50)
[2020-06-29] MEDS: Remdesivir 100 mg Vial 100 MG in NS 0.9% 250 ml 230 ML IV SCH (21:50)
[2020-06-30] MEDS: Dexamethasone IV 4 MG/ML VIAL 1 ml VIAL IV SLOW PU SCH ×3 (05:25→21:06)
[2020-06-30] MEDS: Enoxaparin 80 MG/0.8 ML SYR SUBCUT SCH ×2 (05:25→21:07)
[2020-06-30 05:50] LABS: Hematocrit 43 % (42-52); Hemoglobin 14.3 g/dL (14.0-18.0); Mean Corpuscular HGB Conc 34 g/dL (31-36); Mean Corpuscular Hemoglobin 29 pg (27-31); Mean Corpuscular Volume 88 fL (80-94); Mean Platelet Volume 7.9 fL (7.4-10.4); Platelet Count 227 10^3/uL (150-450); Red Blood Count 4.85 10^6 /uL (4.18-5.48); Red Cell Distribution Width 13 % (10-15); White Blood Count 7.4 10^3/uL (3.5-10.8)
[2020-06-30 06:07] LABS: Albumin 3.1 g/dL (3.2-5.2); Albumin/Globulin Ratio 0.9 (1-3); C Reactive Protein 20.08 mg/L (<8.01); Calcium 8.6 mg/dL (8.6-10.3); EGFR African American 108.5 (>60); EGFR Non-African American 89.7 (>60); Globulin 3.4 g/dL (2-4); Magnesium 2.5 mg/dL (1.9-2.7); Phosphorus 3.8 mg/dL (2.5-5.0); Potassium 4.3 mmol/L (3.5-5.0); Total Bilirubin 0.6 mg/dL (0.2-1.0); Total Protein 6.5 g/dL (6.4-8.9)
[2020-06-30] MEDS: Famotidine IV 10 MG/ML 2 ml VIAL (20 mg) IV SLOW PU SCH ×2 (09:43→21:06)
[2020-06-30] MEDS: cefTRIAXone 1 gm/50 mL NS BAG 1 GM/50 ML BAG IVPB SCH (20:10)
[2020-06-30] MEDS: Remdesivir 100 mg Vial 100 MG in NS 0.9% 250 ml 230 ML IV SCH (21:21)
[2020-07-01 04:33] LABS: Albumin 3.1 g/dL (3.2-5.2); Calcium 8.3 mg/dL (8.6-10.3); EGFR African American 120.8 (>60); EGFR Non-African American 99.9 (>60); Globulin 3.1 g/dL (2-4); Magnesium 2.3 mg/dL (1.9-2.7); Phosphorus 3.4 mg/dL (2.5-5.0); Potassium 4.5 mmol/L (3.5-5.0); Total Bilirubin 0.6 mg/dL (0.2-1.0); Total Protein 6.2 g/dL (6.4-8.9)
[2020-07-01] MEDS: Dexamethasone IV 4 MG/ML VIAL 1 ml VIAL IV SLOW PU SCH ×3 (06:28→20:22)
[2020-07-01] MEDS: Famotidine IV 10 MG/ML 2 ml VIAL (20 mg) IV SLOW PU SCH ×2 (07:58→20:22)
[2020-07-01] MEDS: Enoxaparin 80 MG/0.8 ML SYR SUBCUT SCH ×2 (08:00→20:21)
[2020-07-01] MEDS: cefTRIAXone 1 gm/50 mL NS BAG 1 GM/50 ML BAG IVPB SCH (20:16)
[2020-07-01] MEDS: Acetylcysteine 600mgCAP(RENAL) PO SCH (20:22)
[2020-07-01] MEDS: Remdesivir 100 mg Vial 100 MG in NS 0.9% 250 ml 230 ML IV SCH (21:52)
[2020-07-02] MEDS: Dexamethasone IV 4 MG/ML VIAL 1 ml VIAL IV SLOW PU SCH ×3 (05:30→20:49)
[2020-07-02 05:53] LABS: ABS Lymphocytes 0.7 10^3/ul (1.0-4.8); ABS Monocytes 0.4 10^3/ul (0-0.8); ABS Neutrophils 5.2 10^3/ul (1.5-7.7); Eosinophil % 0.5 %; Hematocrit 44 % (42-52); Lymphocyte % 10.8 %; Mean Corpuscular HGB Conc 34 g/dL (31-36); Mean Corpuscular Hemoglobin 30 pg (27-31); Mean Corpuscular Volume 88 fL (80-94); Mean Platelet Volume 7.7 fL (7.4-10.4); Platelet Count 218 10^3/uL (150-450); Red Blood Count 4.99 10^6 /uL (4.18-5.48); Red Cell Distribution Width 13 % (10-15); White Blood Count 6.3 10^3/uL (3.5-10.8)
[2020-07-02 06:14] LABS: Albumin 3.1 g/dL (3.2-5.2); C Reactive Protein 6.15 mg/L (<8.01); Calcium 8.7 mg/dL (8.6-10.3); EGFR African American 115.9 (>60); EGFR Non-African American 95.8 (>60); Globulin 3.2 g/dL (2-4); Indirect Bilirubin 0.4 mg/dL (0.3-1.0); Magnesium 2.1 mg/dL (1.9-2.7); Phosphorus 3.7 mg/dL (2.5-5.0); Potassium 4.6 mmol/L (3.5-5.0); Total Bilirubin 0.6 mg/dL (0.2-1.0); Total Protein 6.3 g/dL (6.4-8.9)
[2020-07-02 06:16] LABS: Troponin I 0.01 ng/mL (<0.03)
[2020-07-02] MEDS: Enoxaparin 80 MG/0.8 ML SYR SUBCUT SCH ×2 (09:03→20:10)
[2020-07-02] MEDS: Acetylcysteine 600mgCAP(RENAL) PO SCH ×2 (09:03→20:09)
[2020-07-02] MEDS: Famotidine IV 10 MG/ML 2 ml VIAL (20 mg) IV SLOW PU SCH ×2 (09:04→20:10)
[2020-07-02] MEDS: Multivitamins/Minerals TAB PO SCH (13:39)
[2020-07-02] MEDS: cefTRIAXone 1 gm/50 mL NS BAG 1 GM/50 ML BAG IVPB SCH (20:09)
[2020-07-03] MEDS: Dexamethasone IV 4 MG/ML VIAL 1 ml VIAL IV SLOW PU SCH ×3 (05:27→20:40)
[2020-07-03 05:54] LABS: ABS Eosinophils 0.1 10^3/ul (0-0.6); ABS Lymphocytes 0.7 10^3/ul (1.0-4.8); ABS Monocytes 0.5 10^3/ul (0-0.8); Eosinophil % 0.8 %; Hematocrit 44 % (42-52); Hemoglobin 14.9 g/dL (14.0-18.0); Lymphocyte % 9.4 %; Mean Corpuscular HGB Conc 34 g/dL (31-36); Mean Corpuscular Hemoglobin 30 pg (27-31); Mean Corpuscular Volume 88 fL (80-94); Mean Platelet Volume 7.7 fL (7.4-10.4); Platelet Count 224 10^3/uL (150-450); Red Blood Count 4.98 10^6 /uL (4.18-5.48); Red Cell Distribution Width 13 % (10-15); White Blood Count 7.2 10^3/uL (3.5-10.8)
[2020-07-03] MEDS: Acetylcysteine 600mgCAP(RENAL) PO SCH ×2 (08:54→20:39)
[2020-07-03] MEDS: Multivitamins/Minerals TAB PO SCH (08:55)
[2020-07-03] MEDS: Famotidine IV 10 MG/ML 2 ml VIAL (20 mg) IV SLOW PU SCH ×2 (08:55→20:40)
[2020-07-03] MEDS: Enoxaparin 80 MG/0.8 ML SYR SUBCUT SCH ×2 (08:55→20:39)
[2020-07-03] MEDS: cefTRIAXone 1 gm/50 mL NS BAG 1 GM/50 ML BAG IVPB SCH (20:30)
[2020-07-04 04:43] LABS: ABS Eosinophils 0.1 10^3/ul (0-0.6); ABS Lymphocytes 0.6 10^3/ul (1.0-4.8); ABS Monocytes 0.5 10^3/ul (0-0.8); ABS Neutrophils 6.6 10^3/ul (1.5-7.7); Eosinophil % 0.7 %; Hematocrit 45 % (42-52); Hemoglobin 15.3 g/dL (14.0-18.0); Lymphocyte % 7.7 %; Mean Corpuscular HGB Conc 34 g/dL (31-36); Mean Corpuscular Hemoglobin 30 pg (27-31); Mean Corpuscular Volume 88 fL (80-94); Mean Platelet Volume 7.8 fL (7.4-10.4); Nucleated Red Blood Cells % 0.1; Platelet Count 217 10^3/uL (150-450); Red Cell Distribution Width 13 % (10-15); White Blood Count 7.8 10^3/uL (3.5-10.8)
[2020-07-04 04:54] LABS: Calcium 8.9 mg/dL (8.6-10.3)
[2020-07-04 05:00] LABS: C Reactive Protein 2.46 mg/L (<8.01); EGFR Non-African American 112.4 (>60)
[2020-07-04 05:03] LABS: Potassium 5.5 mmol/L (3.5-5.0)
[2020-07-04] MEDS: Dexamethasone IV 4 MG/ML VIAL 1 ml VIAL IV SLOW PU SCH ×3 (05:22→20:04)
[2020-07-04] MEDS ORDERED: Sodium Polystyrene ORAL.SUSP 15 GM/60 ML BTL PO ONE (05:41)
[2020-07-04] MEDS ORDERED: Dextrose 50% Syringe 50 ml 25 GM/50 ML SYRINGE IV PUSH PRN (07:10)
[2020-07-04] MEDS: Acetylcysteine 600mgCAP(RENAL) PO SCH ×2 (08:53→20:04)
[2020-07-04] MEDS: Multivitamins/Minerals TAB PO SCH (08:54)
[2020-07-04] MEDS: Enoxaparin 80 MG/0.8 ML SYR SUBCUT SCH ×2 (08:54→20:03)
[2020-07-04] MEDS: Famotidine IV 10 MG/ML 2 ml VIAL (20 mg) IV SLOW PU SCH ×2 (08:54→20:04)
[2020-07-04 15:41] LABS: Blood Urea Nitrogen 24 mg/dL (6-24); CO2 Carbon Dioxide 27 mmol/L (22-32); Calcium 9.3 mg/dL (8.6-10.3); Chloride 95 mmol/L (101-111); EGFR African American 124.3 (>60); EGFR Non-African American 102.7 (>60); Glucose 387 mg/dL (70-100); Sodium 128 mmol/L (135-145)
[2020-07-04 16:40] LABS: Anion Gap 6 mmol/L (2-11)
[2020-07-04] MEDS ORDERED: Dextrose 50% Syringe 50 ml 25 GM/50 ML SYRINGE IV PUSH ONE (18:37)
[2020-07-04] MEDS ORDERED: SODIUM ZIRCONIUM CYCLOSILICATE 10 GM PACKET PO ONE (18:37)
[2020-07-04] MEDS: cefTRIAXone 1 gm/50 mL NS BAG 1 GM/50 ML BAG IVPB SCH (20:24)
[2020-07-04 20:38] LABS: Myoglobin 23.9 ng/mL (17.4-105.7)
[2020-07-04 22:55] LABS: Blood Urea Nitrogen 25 mg/dL (6-24); CO2 Carbon Dioxide 27 mmol/L (22-32); Chloride 95 mmol/L (101-111); EGFR African American 119.2 (>60); EGFR Non-African American 98.5 (>60); Glucose 354 mg/dL (70-100); Sodium 128 mmol/L (135-145)
[2020-07-04 23:00] LABS: Anion Gap 6 mmol/L (2-11)
[2020-07-05 04:46] LABS: ABS Lymphocytes 0.6 10^3/ul (1.0-4.8); ABS Monocytes 0.5 10^3/ul (0-0.8); Eosinophil % 0.5 %; Hematocrit 44 % (42-52); Hemoglobin 14.9 g/dL (14.0-18.0); Lymphocyte % 8.4 %; Mean Corpuscular HGB Conc 34 g/dL (31-36); Mean Corpuscular Hemoglobin 30 pg (27-31); Mean Corpuscular Volume 89 fL (80-94); Mean Platelet Volume 7.7 fL (7.4-10.4); Platelet Count 187 10^3/uL (150-450); Red Blood Count 4.96 10^6 /uL (4.18-5.48); Red Cell Distribution Width 13 % (10-15); White Blood Count 7.2 10^3/uL (3.5-10.8)
[2020-07-05 04:54] LABS: Calcium 8.8 mg/dL (8.6-10.3)
[2020-07-05 05:00] LABS: C Reactive Protein 1.68 mg/L (<8.01); EGFR African American 122.6 (>60); EGFR Non-African American 101.3 (>60)
[2020-07-05] MEDS: Acetylcysteine 600mgCAP(RENAL) PO SCH ×2 (08:37→20:15)
[2020-07-05] MEDS: Multivitamins/Minerals TAB PO SCH (08:37)
[2020-07-05] MEDS: Dexamethasone IV 4 MG/ML VIAL 1 ml VIAL IV SLOW PU SCH (08:38)
[2020-07-05] MEDS: Famotidine IV 10 MG/ML 2 ml VIAL (20 mg) IV SLOW PU SCH ×2 (08:38→20:15)
[2020-07-05] MEDS: Enoxaparin 80 MG/0.8 ML SYR SUBCUT SCH ×2 (08:39→20:15)
[2020-07-05] MEDS: cefTRIAXone 1 gm/50 mL NS BAG 1 GM/50 ML BAG IVPB SCH (20:15)
[2020-07-06 03:57] LABS: ABS Eosinophils 0.1 10^3/ul (0-0.6); ABS Lymphocytes 0.9 10^3/ul (1.0-4.8); ABS Monocytes 0.8 10^3/ul (0-0.8); ABS Neutrophils 5.6 10^3/ul (1.5-7.7); Eosinophil % 1.2 %; Hematocrit 42 % (42-52); Hemoglobin 14.3 g/dL (14.0-18.0); Lymphocyte % 12.3 %; Mean Corpuscular HGB Conc 34 g/dL (31-36); Mean Corpuscular Hemoglobin 30 pg (27-31); Mean Corpuscular Volume 88 fL (80-94); Mean Platelet Volume 8.1 fL (7.4-10.4); Nucleated Red Blood Cells % 0.1; Platelet Count 177 10^3/uL (150-450); Red Blood Count 4.79 10^6 /uL (4.18-5.48); Red Cell Distribution Width 14 % (10-15); White Blood Count 7.4 10^3/uL (3.5-10.8)
[2020-07-06 04:17] LABS: C Reactive Protein 1.12 mg/L (<8.01); Calcium 8.7 mg/dL (8.6-10.3); EGFR Non-African American 105.8 (>60)
[2020-07-06 04:18] LABS: Potassium 4.8 mmol/L (3.5-5.0)
[2020-07-06] MEDS: Dexamethasone IV 4 MG/ML VIAL 1 ml VIAL IV SLOW PU SCH (08:54)
[2020-07-06] MEDS: Enoxaparin 80 MG/0.8 ML SYR SUBCUT SCH ×2 (08:54→19:39)
[2020-07-06] MEDS: Multivitamins/Minerals TAB PO SCH (08:54)
[2020-07-06] MEDS: Famotidine IV 10 MG/ML 2 ml VIAL (20 mg) IV SLOW PU SCH ×2 (08:54→19:39)
[2020-07-06] MEDS: Acetylcysteine 600mgCAP(RENAL) PO SCH ×2 (08:57→19:41)
[2020-07-07 05:13] LABS: ABS Eosinophils 0.1 10^3/ul (0-0.6); ABS Monocytes 0.7 10^3/ul (0-0.8); ABS Neutrophils 5.5 10^3/ul (1.5-7.7); Eosinophil % 0.9 %; Hematocrit 43 % (42-52); Hemoglobin 14.7 g/dL (14.0-18.0); Lymphocyte % 13.6 %; Mean Corpuscular HGB Conc 34 g/dL (31-36); Mean Corpuscular Hemoglobin 30 pg (27-31); Mean Corpuscular Volume 88 fL (80-94); Mean Platelet Volume 8.2 fL (7.4-10.4); Platelet Count 161 10^3/uL (150-450); Red Blood Count 4.87 10^6 /uL (4.18-5.48); Red Cell Distribution Width 13 % (10-15); White Blood Count 7.2 10^3/uL (3.5-10.8)
[2020-07-07 05:23] LABS: Calcium 8.9 mg/dL (8.6-10.3); EGFR African American 131.9 (>60); Magnesium 2.1 mg/dL (1.9-2.7)
[2020-07-07 05:36] LABS: Potassium 4.7 mmol/L (3.5-5.0)
[2020-07-07] MEDS: Multivitamins/Minerals TAB PO SCH (09:07)
[2020-07-07] MEDS: Famotidine IV 10 MG/ML 2 ml VIAL (20 mg) IV SLOW PU SCH ×2 (09:07→21:54)
[2020-07-07] MEDS: Dexamethasone IV 4 MG/ML VIAL 1 ml VIAL IV SLOW PU SCH (09:07)
[2020-07-07] MEDS: Acetylcysteine 600mgCAP(RENAL) PO SCH ×2 (09:08→21:52)
[2020-07-07] MEDS: Enoxaparin 80 MG/0.8 ML SYR SUBCUT SCH ×2 (09:09→21:53)
[2020-07-08] MEDS: Multivitamins/Minerals TAB PO SCH (08:25)
[2020-07-08] MEDS: Acetylcysteine 600mgCAP(RENAL) PO SCH (08:25)
[2020-07-08] MEDS: Famotidine IV 10 MG/ML 2 ml VIAL (20 mg) IV SLOW PU SCH (08:27)
[2020-07-08] MEDS: Enoxaparin 80 MG/0.8 ML SYR SUBCUT SCH (08:27)
[2020-07-08 09:46] LABS: Hematocrit 48 % (42-52); Mean Corpuscular HGB Conc 34 g/dL (31-36); Mean Corpuscular Hemoglobin 30 pg (27-31); Mean Corpuscular Volume 89 fL (80-94); Mean Platelet Volume 8.5 fL (7.4-10.4); Platelet Count 160 10^3/uL (150-450); Red Blood Count 5.37 10^6 /uL (4.18-5.48); Red Cell Distribution Width 14 % (10-15); White Blood Count 8.1 10^3/uL (3.5-10.8)
[2020-07-08 10:02] LABS: Blood Urea Nitrogen 28 mg/dL (6-24); CO2 Carbon Dioxide 29 mmol/L (22-32); Calcium 9.3 mg/dL (8.6-10.3); Chloride 97 mmol/L (101-111); EGFR African American 119.2 (>60); EGFR Non-African American 98.5 (>60); Glucose 180 mg/dL (70-100); Sodium 133 mmol/L (135-145)
[2020-07-08 10:06] LABS: ABS Eosinophils 0.1 10^3/ul (0-0.6); ABS Monocytes 0.6 10^3/ul (0-0.8); ABS Neutrophils 6.3 10^3/ul (1.5-7.7); Eosinophil % 0.9 %; Lymphocyte % 12.9 %
[2020-07-08 11:11] LABS: Anion Gap 7 mmol/L (2-11)
[2020-07-08 11:44] VITALS: BP 111/69
== END 2020-07-08 16:10 | disposition home or self-care (01) | DRG 137 ==
LOC: ED 14:10 → ICU 17:18 → MED 07-07 15:27
PROVIDERS: ADMIT Internal Medicine Critical Care Medicine; ATTEND Internal Medicine